=== PATIENT | male | born 1935 | race Caucasian/White ===

== ENCOUNTER 2021-03-18 15:01 | Inpatient (IN) | payer OTHER, MEDICARE ==
[~2021-03-18] VITALS: Ht 175.3 cm; Wt 61.2 kg
--- NOTE | ~2021-03-18 | EMS ---
[address] [address] EMS Patient Care Report Name: SONIA VILLATORO Room #: 452-P [facility] IN M.R.#: [id number] Admission: 03/18/21 Attend Phys: Dayton Case MD Discharge: 03/22/21 Date of : [birth year] Report #: [id number] THIS REPORT FOR: //name// Report Transmitted: 03/23/2021 14:36 EMS Care Summary [facility] MED-ACT Incident [id number] @ 03/18/2021 14:22 Incident Location [address] [place] [address] Patient SONIA VILLATORO Male, 85 Years 1935 Patient Address [address] [place] [address] Patient History Chronic Obstructive Pulmonary Disease (COPD),Dementia,Depression,Dysphagia, Patient Allergies Penicillin allergy,Erythromycin, Patient Medications ASA, Zyprexa, Clonazepam, Chief Complaint altered mental status Disposition Transported No Lights/[place] Dispatch Reason Sick Person Transported To [facility] Narrative Arrived on scene to find the pt sitting upright in a wheelchair. Facility staff in attendance. LFD providing care. Facility staff state the pt has had a steady decline in mentation over over the [address] [address] EMS Patient Care Report Name: SONIA VILLATORO Room #: 452-P DIS IN M.R.#: [id number] Admission: 03/18/21 Attend Phys: Dayton Case MD Discharge: 03/22/21 Date of : [birth year] Report #: [id number] last 15-16 hours. Facility staff state the pt is normally alert to person and place but now, is lethargic and unable to eat, drink or take his medications. Facility staff state that labs were drawn on the pt and the pt did not have a elevated white blood cell count (10.4). Facility staff deny any recent falls or trauma. Facility staff state the pt has had elevated vital signs over the same duration. Exam, vitals, history, EKG, facility staff state the pt normally goes to [facility], I explained that the [facility] is on high volume and it could take longer to get care, they called the pt's DPOA who agreed to have the pt transported to [place]. Pt is lifted by EMS and placed on the cot. The pt is then secured to the cot and taken to the ambulance without incident. 12 lead- no MICHOACANO. En route, no changes in complaint or presentation. Biocom given. Pt is moved via lateral sheet pull to the hospital bed without incident. Initial Vitals @14:50P: 113,BP: 154/84,SpO2: 94, @14:46P: 113,R: 16,Temp: 99.4F,SpO2: 95,NH Suspected: false @PTAP: 120,R: 16,BP: 162/96,Pain: 0/10,GCS: 11,Temp: 99.4F,Glucose: 135,SpO2: 96,Revised Trauma: 11, Assessments @14:34MENTAL:Unresponsive,SKIN:Hot,HEENT:Head/Face: No Abnormalities,Neck/Airway: No Abnormalities,LUNG SOUNDS:ABDOMEN:PELVIS//GI:EXTREMITIES:Left Arm: No Abnormalities,Right Arm: No Abnormalities,Left Leg: No Abnormalities,Right Leg: No Abnormalities,PULSE:NEURO:No Abnormalities, Impression Altered Mental Status Procedures @14:4612-Lead ECG Timeline ASSISTANT FILM EDITOR,BP: 162/96 M,PULSE: 120,RR: 16 R,SPO2: 96 Ox,ETCO2: ,B,PAIN: 0,GCS: 11, 14:21,Call Received 14:21,Psap Call 14:22,Dispatched 14:24,En Route 14:31,On Scene 14:33,At Patient 14:46,12-Lead ECG, 14:46,BP: / M,PULSE: 113,RR: 16 R,SPO2: 95 Ox,ETCO2: ,BG: ,PAIN: ,GCS: , 14:47,Depart Scene [address] [address] EMS Patient Care Report Name: VARUNAJJENNYKYRASONIA STACIE Room #: 452-P [facility] IN M.R.#: [id number] Admission: 03/18/21 Attend Phys: Dayton Case MD Discharge: 03/22/21 Date of : [birth year] Report #: [id number] 14:50,BP: 154/84 M,PULSE: 113,RR: R,SPO2: 94 Ox,ETCO2: ,BG: ,PAIN: ,GCS: , 14:53,At Destination 15:13,Call Closed Disclaimer v1.1 Copyright 2020 [employer] This EMS Care Summary contains data elements from the applicable legal record (which may be displayed differently). It is designed to provide pertinent information for the following purposes: continuity of care, clinical quality, and state data reporting. The complete legal record is available to ED staff and administrators of the receiving hospital in [employer] Patient Tracker. All data is provided "as is."
[2021-03-18 15:05] VITALS: BP 205/108
--- NOTE | 2021-03-18 16:02 | NUR ---
PT ON PUREE DIET W REG LIQUIDS, PT NOT TAKING PO INTAKE OVER THE PAST 24 HRS. COVID TESTING AT FACILITY NEGATIVE AND NON VACCINATED. PER WHITNEY AND DANIEL AT FACILITY. CONFUSED W MORE ACTIVITY AT [facility]. PT WAS ABLE TO AMBULATE WITHOUT ASSISTANCE. ADVANCED DEMENTIA. MODERATE DEMENTIA IN 2010.
[2021-03-18 16:04] LABS: ABSOLUTE NEUTROPHILS 7.6 thou/uL (1.4-8.2); BASOPHILS 0.6 % (0.0-2.0); HEMATOCRIT 38.8 % (42.0-52.0); LYMPHOCYTES 13.2 % (24.0-44.0); MCH 28.5 pg (26.0-34.0); MCHC 33.3 g/dL (28.0-37.0); MCV 85.4 fL (80.0-100.0); MONOCYTES 12.8 % (1.0-8.0); PLATELET COUNT 304 thou/uL (150-400); POLYS 73.4 % (36.0-66.0); RBC 4.55 mil/uL (4.50-6.00); RDW 14.9 % (10.5-14.5); WBC 10.3 thou/uL (4.0-11.0)
[2021-03-18 16:16] LABS: CALCIUM 8.9 mg/dL (8.5-10.1); CREATININE 1.3 mg/dL (0.7-1.3); POTASSIUM 4.5 mmol/L (3.5-5.1)
[2021-03-18 16:19] LABS: ALBUMIN 3.3 g/dL (3.4-5.0); TOTAL BILIRUBIN 1.2 mg/dL (0.2-1.0)
[2021-03-18 16:30] LABS: URINE BLOOD 3+ (Negative); URINE CLARITY CLEAR; URINE COLOR YELLOW; URINE GLUCOSE-RANDOM* NEGATIVE (Negative); URINE KETONES 2+ (Negative); URINE LEUKOCYTES-REFLEX NEGATIVE (Negative); URINE NITRITE-REFLEX NEGATIVE (Negative); URINE PROTEIN (DIPSTICK) 1+ (Negative); URINE SPECIFIC GRAVITY 1.025 (1.005-1.035)
[2021-03-18 16:36] LABS: ICTOTEST (BILI CONFIRMATORY) Negative (Negative); URINE BILIRUBIN NEGATIVE (Negative)
[2021-03-18 16:41] LABS: AMP/METHAMP Negative (Negative); BARBITURATES Negative (Negative); BENZODIAZEPINES Negative (Negative); COCAINE Negative (Negative); METHADONE Negative (Negative); OPIATES Negative (Negative); PCP Negative (Negative)
[2021-03-18 16:46] LABS: BACTERIA-REFLEX 1-9 Few /HPF (None Seen); CASTS None Seen /LPF (None Seen); CRYSTALS None Seen /LPF (None Seen); SQUAMOUS None Seen /LPF (0-3); URINE WBC-REFLEX 0-5 Rare /HPF (0-5)
[2021-03-18 19:53] VITALS: BP 157/109
[2021-03-18 20:58] VITALS: BP 159/81
--- NOTE | 2021-03-19 02:26 | NUR ---
patient is new admit for aspiration pnemonia, uti and ams.patient is non verbal.family at bedside and helped with assessment. no soa/distress/ cough noted this shift.fall precaution in place. patient in bed asleep at this time breathing regular and unlaboured.
[2021-03-19 05:24] LABS: HEMOGLOBIN 11.8 gm/dL (14.0-18.0); MCH 28.1 pg (26.0-34.0); MCHC 32.7 g/dL (28.0-37.0); MCV 85.9 fL (80.0-100.0); RBC 4.19 mil/uL (4.50-6.00); RDW 14.7 % (10.5-14.5); WBC 8.4 thou/uL (4.0-11.0)
[2021-03-19 06:14] LABS: CALCIUM 8.6 mg/dL (8.5-10.1); CREATININE 1.1 mg/dL (0.7-1.3)
--- NOTE | 2021-03-19 07:11 | EKG ---
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 : 1935 Requested By: Jani Agustin Order Number: [id number] MD: Ismael Abdalla Measurements Intervals [place] Rate: 106 P: 65 CO: 179 QRS: -17 QRSD: 74 T: 56 QT: 324 QTc: 431 Interpretive Statements Sinus tachycardia Left atrial enlargement Borderline left axis deviation No previous ECG available for comparison Electronically Signed On 03-19-2021 7:10:50 CDT by Ismael Abdalla [email or web address] <ELECTRONICALLY SIGNED> By: Ismael Abdalla MD, [facility] 03/19/21 0710 D: [id number] 20 Ismael Abdalla MD, FAC /EPI
[2021-03-19 07:30] VITALS: BP 174/91
[2021-03-19] MEDS ORDERED: ASA81BEC PO (08:49)
[2021-03-19] MEDS ORDERED: CLONAZEPAM 0.50.5 M1 PO ×2 (08:50→09:02)
[2021-03-19] MEDS ORDERED: PEPCID40 MG PO (08:51)
[2021-03-19] MEDS ORDERED: REMERON30 MG PO (08:52)
[2021-03-19] MEDS ORDERED: OLANZAPINE5 M1 PO (08:53)
[2021-03-19] MEDS ORDERED: VITAMIN D310 MC2 PO (08:55)
[2021-03-19] MEDS ORDERED: TYLENOL325 MG PO (09:00)
[2021-03-19] MEDS ORDERED: CALCIUM ANTACI200 MG PO (09:01)
[2021-03-19] MEDS ORDERED: OLANZAPINE2.5 MG PO (09:03)
[2021-03-19] MEDS ORDERED: GAS RELIEF125 M1 PO (09:05)
--- NOTE | 2021-03-19 14:23 | NUR ---
PT ADMITTED RELATED TO ASP PNA, UTI, AMS. CM REVIEWED CHART AND SPOKE WITH CARE TEAM. CM MET WITH PT AND DTR KULWANT AT BEDSIDE THIS DAY. PT DIDN'T PARTICIPATE IN ASSESSMENT DTR ANSWERED ALL QUESTIONS. SHE INDICATED THAT PT HAD M[facility]ED INTO [facility] ABOUT 3 WEEKS AGO. SHE INDICATED THAT UP UNTIL 2 OR THREE DAYS AGO PT HAD BEEN AMBULATORY, ABLE TO TOILET HIMSELF AND FEED HIMSELF. DTR INDICATED THAT PT HAD BEEN LIVING IN OWN TRAILET IN [facility] AT THE BEGINING OF THE YEAR AND [place] 3 [place], TO AN [place] [place] WHERE HE HAD BEEN FOR A WHILE, PT HAD BEEN HOSPITALIZED AND SKILLED AT [facility] A FEW TIMES WELL. PT'S SON JANET AND DTR TIERNEY ARE DPOA AND DTR WORKS AT [employer]. THEY ARE INTERESTED IN EVAL FOR POSSIBLE ADMISSION TO [facility]. CM FOLLOWING REGARDING DC PLANNING.
[2021-03-19 15:40] VITALS: BP 168/84
--- NOTE | 2021-03-19 18:40 | NUR ---
ASSUMED PT CARE THIS AM. PT IS DROWSY BUT AROUSABLE AND NONVERBAL. PT HAS IV SITE ON R HAND RUNNING NS @ 75ML/HR. PT HAS DEMENTIA. PT IS ON ROOM AIR. PT VOIDED AND CHANGED PAD THIS AM. PT BP WAS ELEVATED AND INFORMED GIVEN HYDRALAZINE PER DR ORDERED. PT FAMILY WAS AT THE BEDSIDE. DID NOT DO WELL WITH SPEECH EVALUATION THIS AM AND INFORMED PT ON THE BED. PT ON THE LOWEST POSITION, SIDE RAILS UP, CALL LIGHT WITHIN REACH. WILL CONTINUE TO MONITOR PT. FOLLOW POC.
[2021-03-19 19:16] VITALS: BP 159/81
--- NOTE | 2021-03-20 05:38 | NUR ---
Pt. rested quietly at intervals during the night when checked on during frequent rounds. He responds to his name, but will not converse. When giving patient lew care he becomes agitated. Pt. will curse at the staff and attempt to swing out. Bed alarm is on.
[2021-03-20 07:30] VITALS: BP 154/86
[2021-03-20 10:19] LABS: ABSOLUTE NEUTROPHILS 3.1 thou/uL (1.4-8.2); BASOPHILS 0.3 % (0.0-2.0); EOSINOPHILS 0.3 % (0.0-3.0); HEMATOCRIT 33.4 % (42.0-52.0); HEMOGLOBIN 11.1 gm/dL (14.0-18.0); LYMPHOCYTES 27.8 % (24.0-44.0); MCHC 33.2 g/dL (28.0-37.0); MCV 84.3 fL (80.0-100.0); MONOCYTES 15.9 % (1.0-8.0); PLATELET COUNT 284 thou/uL (150-400); POLYS 55.7 % (36.0-66.0); RBC 3.96 mil/uL (4.50-6.00); RDW 14.4 % (10.5-14.5); WBC 5.5 thou/uL (4.0-11.0)
[2021-03-20 10:31] LABS: ALBUMIN 2.6 g/dL (3.4-5.0); CALCIUM 8.1 mg/dL (8.5-10.1); CREATININE 0.9 mg/dL (0.7-1.3); POTASSIUM 3.7 mmol/L (3.5-5.1); TOTAL BILIRUBIN 0.6 mg/dL (0.2-1.0); TOTAL PROTEIN 6.8 g/dL (6.4-8.2)
[2021-03-20 16:26] VITALS: BP 150/88
[2021-03-20 16:34] VITALS: BP 109/54
--- NOTE | 2021-03-20 17:01 | NUR ---
PT IS A&O*1, RESPONSE TO NAME CALLED. PT STARTED TO BE MORE CONFUSED AND AGIATED WITH DYSARTHRIA. PT KEEP TRYING TO LEAVE THE BED AND PULLED OUT IV ONCE. NOTICED RIGHT HADN RED AND SWALLOW WHILE PT HOLDING BED TIGHTLY. RELAX PATIENT'S RIGHT HAND OFF. BED ALARM IS ON, ROOM KEPT CLOSE TO NURSING STATION. NEW IV INSERTED AND WRAPPED BY SECURITY TAPE. DR. KENNEDY CALLED AND NOTIFIED PATIENT'S STATUS. ONE DOSE OLAZAPINE GIVEN. WILL KEEP MONITOR PATIENT'S SAFETY AND VITALS SIGNS.
[2021-03-20 19:56] VITALS: BP 127/65
--- NOTE | 2021-03-21 03:24 | NUR ---
PT CARE ASSUMED WITH PT IN BED SLEEPING AT SHIFT CHANGE.PT IS A/O TO SELF.PT IS IMPULSIVE AND CONFUSED.BLEACH PACKER KASEY NOTIFIED AND ONETIME DOSE OLANZAPINE GIVEN .IV ACCESS ON RT FA WITH D5W0.9NS AT 70CC/HR.PT INCONTINENT TO B/B.PT APPEARED TO BE IN NO ACUTE DISTRESS.PT STRAIGHT CATH FOR URINE SAMPLE.WILL CONTINUE TO MONITOR
[2021-03-21 04:26] LABS: URINE BILIRUBIN NEGATIVE (Negative); URINE BLOOD 2+ (Negative); URINE CLARITY CLEAR; URINE COLOR YELLOW; URINE GLUCOSE-RANDOM* NEGATIVE (Negative); URINE KETONES NEGATIVE (Negative); URINE LEUKOCYTES-REFLEX NEGATIVE (Negative); URINE NITRITE-REFLEX NEGATIVE (Negative); URINE PROTEIN (DIPSTICK) TRACE (Negative); URINE SPECIFIC GRAVITY >= 1.030 (1.005-1.035)
[2021-03-21 04:35] LABS: MUCUS 4-6 Moderate strn/LPF (None Seen); SQUAMOUS None Seen /LPF (0-3)
[2021-03-21 04:36] LABS: BACTERIA-REFLEX 1-9 Few /HPF (None Seen); CASTS None Seen /LPF (None Seen); CRYSTALS None Seen /LPF (None Seen); URINE RBC 3-10 Few /HPF (NONE SEEN); URINE WBC-REFLEX 0-5 Rare /HPF (0-5); WBC CLUMPS Rare (None Seen)
[2021-03-21 07:26] VITALS: BP 177/79
[2021-03-21 16:11] VITALS: BP 147/77
--- NOTE | 2021-03-21 17:11 | NUR ---
PT A&O*1, ROOM AIR, BED ALARM IS ON AND ROOM CLOSE TO NURSING STATION. PT IS ON PUREED DIET WITH NECTAR FLUID. D5 IN 1/2NS SOLUTION GOING THOUGH RIGHT FOREARM IV AT 70 MLS/HR. BLADDER SCAN PATIENT IN THE MORNING SHOWING 475 URINE RESIDUAL VOLUME AND STRAIGHT CATH ONCE 500 ML URINE OUT. PT INCONTINENT FOR URINE AND STOOL. NOTIFIED AND ORDERED BLADDER SCAN TWICE A DAY, STRAIGHT CATH PT IF URINE RESIDUAL GREATER THAN 400 MLS EACH TIME. WILL KEEP MONITOR PATIENT'S SAFETY AND VITAL SIGNS UNTIL SHIFT CHANGE. PT'S YOHANA MONET VISITED PATIENT THIS AFTERNOON AND WILLING TO TALK TO FOR TREATMENT PLAN TOMORROW.
[2021-03-21 20:01] VITALS: BP 151/78
--- NOTE | 2021-03-22 03:26 | NUR ---
PT IS A/O X1 AND IS UP WITH ASSISTANCE. ROOM AIR. DENIES C/O PAIN OR DISCOMFORT. VSS. AFEBRILE. WAS ABLE TO GET UP WITH NURSE AND WALK TO THE BR TO VOID THIS NOC. NO BM THIS SHIFT. CAN BE IMPULSIVE AT TIMES AND IS [place]. PLEASANT AND COOPERATIVE. FALL PRECAUTIONS IN PLACE, CALL LIGHT IS WITHIN REACH.
[2021-03-22 06:26] LABS: ABSOLUTE NEUTROPHILS 2.4 thou/uL (1.4-8.2); BASOPHILS 0.5 % (0.0-2.0); EOSINOPHILS 3.2 % (0.0-3.0); HEMATOCRIT 32.3 % (42.0-52.0); HEMOGLOBIN 10.6 gm/dL (14.0-18.0); MCH 27.7 pg (26.0-34.0); MCHC 32.9 g/dL (28.0-37.0); MCV 84.2 fL (80.0-100.0); MONOCYTES 13.8 % (1.0-8.0); PLATELET COUNT 304 thou/uL (150-400); POLYS 48.5 % (36.0-66.0); RBC 3.83 mil/uL (4.50-6.00); RDW 14.5 % (10.5-14.5)
[2021-03-22 06:51] LABS: CALCIUM 8.3 mg/dL (8.5-10.1); MAGNESIUM 1.9 mg/dL (1.8-2.4); PHOSPHORUS 2.8 mg/dL (2.6-4.7); POTASSIUM 3.7 mmol/L (3.5-5.1)
[2021-03-22 07:18] VITALS: BP 149/6
[2021-03-22] MEDS ORDERED: CARVEDILOL12.5 MG PO (12:47)
[2021-03-22] MEDS ORDERED: FLOMAX0.4 MG PO (12:47)
[2021-03-22] MEDS ORDERED: FINASTERIDE5 MG PO (12:48)
[2021-03-22] MEDS ORDERED: CLINDAMYCIN HC300 MG PO (12:54)
[2021-03-22 15:30] VITALS: BP 160/70
--- NOTE | 2021-03-22 16:50 | NUR ---
CARE TEAM INDICATED THAT PT HAS BEEN ACCEPTED TO [address] [place] [address] THIS DAY. CHART COPY MADE. CM NOTIFIED PT'S SON DPJOY MAX, PT, AND EX WHO WAS AT BEDSIDE THIS AFTERNOON. PT IS TO DC TO RM 456. NO OTHER CM INTERVENTION INDICATED. CASE CLOSED.
--- NOTE | 2021-03-22 17:22 | NUR ---
Patient very sleepy all day. Did not want to consume any meals. DPOA Max called and nurse gave discharge teaching. No pain at this time. Ex at bedside. IV right AC taken out pressure and gauze appiled. D/C to 5th floor room 526.
== END 2021-03-22 17:43 | DRG 871 ==
LOC: ER 15:01 → EROBS 18:50 → 4W 18:50
PROVIDERS: Internal Medicine; Nurse Practitioner; ADMIT Hospitalist; ATTEND Hospitalist
DX: A41.9 Sepsis, unspecified organism (principal); J69.0 Pneumonitis due to inhalation of food and vomit; G93.41 Metabolic encephalopathy; F03.91 Unspecified dementia, unspecified severity, with behavioral disturbance; F32.9 Major depressive disorder, single episode, unspecified; K21.9 Gastro-esophageal reflux disease without esophagitis; F41.9 Anxiety disorder, unspecified; N18.9 Chronic kidney disease, unspecified; R53.81 Other malaise; E55.9 Vitamin D deficiency, unspecified; D64.9 Anemia, unspecified; R33.9 Retention of urine, unspecified; Z20.822 Contact with and (suspected) exposure to COVID-19; Z66 Do not resuscitate; Z88.0 Allergy status to penicillin; Z91.013 Allergy to seafood
CPT/HCPCS: 10040

== ENCOUNTER 2021-03-22 14:50 | Inpatient (IN) | payer OTHER, MEDICARE ==
[~2021-03-22] VITALS: Ht 167.6 cm; Wt 56.8 kg
[~2021-03-22 14:50] MED LIST: ASA81BEC PO; CALCIUM ANTACI200 MG PO; CARVEDILOL12.5 MG PO; CLINDAMYCIN HC300 MG PO; CLONAZEPAM 0.50.5 M1 PO; FINASTERIDE5 MG PO; FLOMAX0.4 MG PO; GAS RELIEF125 M1 PO; OLANZAPINE2.5 MG PO; OLANZAPINE5 M1 PO; PEPCID40 MG PO; REMERON30 MG PO; TYLENOL325 MG PO; VITAMIN D310 MC2 PO
[2021-03-22 18:08] VITALS: BP 177/85
--- NOTE | 2021-03-22 19:06 | NUR ---
1900 NEW ADMIT TRANSFERRED FROM [facility] FOR ALTERED MENTAL STATUS, PATIENT WAS ADMITTED ON 03/21/21 FOR ASPIRATION PNEUMONIA. PATIENT TODAY HAD THOUGHTS OF SUICIDE SO HE WAS TRANSFERRED TO [facility]. PATIENTS ABDOMEN SOFT BOWEL SOUNDS PRESENT. PATIENTS LUNGS SOME LOWER CRACKLES PATIENT IS ON CLINYDIMYCIN FOR PNEUMONIA. PATIENT DENIES SI/HI/AH/VH AT PRESENT BUT STATES HE IS HOPELESS AND DEPRESSED. I CALLED PATIENTS SON JANET VILLATORO FOR PERMISSION TO ADMIT HIS FATHER. I GAVE HIM THE CODE AND EXPLAINED THE UNIT SET UP PATIENT CALM COOPERATIVE. PATIENT ORIENTED TO SELF ONLY PATIENT HAS LEG WEAKNESS AND NEEDS ASSISTANCE WHEN TRANSFERRING. WILL CONTINUE TO MONITOR PATIENT FOR SAFETY AND BEHAVIORS.
[2021-03-22 20:00] VITALS: BP 178/81
[2021-03-22 20:21] VITALS: BP 178/81
--- NOTE | 2021-03-23 02:25 | NUR ---
PATINET CARE WAS RESUMED AT 1900. HE IS ALERT AND CONFUSSED. MAX ASSIT WITH CARE ABLE TO VERBALZE SME NEEDS. HE IS INCONTINET OF BOWEL AND BLADDER. LUNGS ARE CLEAR BS ACTIVE X4 QUADS. HE DENIES PAINS/SI/ AVH/HI. HE IS ON FALL PREACAUTION. YELLOW SOCK AND TOP IS ON AND HE IS ON 12 MINUTES CHECKS. HE TOOK HIS MEDS WHOLE.
[2021-03-23 05:56] LABS: CHOLESTEROL 125 mg/dL (<200); HDL CHOLESTEROL 26 mg/dL (>40); LDL CHOLESTEROL 77 mg/dL (<100); TC:HDL 4.8 Ratio (Not establshd); TRIGLYCERIDE 112 mg/dL (<150); VLDL 22 mg/dL (<40)
[2021-03-23 06:09] LABS: SERUM ASSESSMENT Clear
[2021-03-23 09:32] VITALS: BP 194/99
--- NOTE | 2021-03-23 09:44 | NUR ---
New admit to [facility]. Pt admitted to acute with asp PNE then had AMS and was admitted to [facility]. Noted on puree diet with max assist at meals, at high risk for aspiration. PMH: Dementia, GERD, Anxiety, Depression, CKD, COPD. On ABX and vit D. Intake has been variable with 100% this Am for bkft, nothing yesterday d/t pt reported too sleepy to eat, >50% 03/21, >75% 03/20. ST recommends thickened liquids. Will initiate magic cup BID and place at low nutrition risk at this time.
--- NOTE | 2021-03-23 14:47 | NUR ---
Assumed patient care at 0700, patient alert and confused of time and date. Assessment completed, lungs clear, BS active x4, VSS, ate 100% of breakast and refused lunch, pt is incontinent, pericare done, found patient walking in his room, took medication with pudding, Patient denies Si/Hi/Avh, will continue to monitor patient.
[2021-03-23 20:16] VITALS: BP 177/81
[2021-03-23 20:30] VITALS: BP 177/81
[2021-03-24 00:06] LABS: GLYCOHEMOGLOBIN (HGB A1C) 6.3 % (4.8-5.6)
--- NOTE | 2021-03-24 02:47 | NUR ---
PATINET CARE WAS RESUMED ON THE 1899. HE IS ALERT AND ORIENTED TO HIS NAME. ABLE TO VERBALIZE SOME NEEDS. PT IS Q 12 MINUTES CHECKS. HE TOOK HIS MED WITH WITHOUT ANY ISSUES. PT IS ASSISTED WITH CARE AND HE IS IN BED NOW WITH . HE HAS A YELLOW SHIRT. ALARM IS NO, BED IS LOW AND LOCKED. HE DENIED PAINS. CONTINUED ACARE AND MONITOR.
[2021-03-24 08:58] VITALS: BP 136/62
[2021-03-24 12:57] LABS: HEMATOCRIT 35.7 % (42.0-52.0); HEMOGLOBIN 11.8 gm/dL (14.0-18.0); MCH 28.2 pg (26.0-34.0); MCV 85.4 fL (80.0-100.0); RBC 4.18 mil/uL (4.50-6.00); RDW 14.6 % (10.5-14.5); WBC 6.6 thou/uL (4.0-11.0)
--- NOTE | 2021-03-24 14:11 | NUR ---
PATIENT CARE ASSUMED 0700, PATIENT WAS IN BED BUT CAME OUT FOR BREAKAST, HE WAS ASSISTED WITH MEAL, MEDICATION WAS CRUSHED AND HE DID GOOD TAKING THEM ASSESSMENT COMPLETED, LUNGS CLEAR, BS ACTIVE X4, VSS, PATIENT IS ON FALL RISK PRECAUTION, CHAIR ALARM ON, NO PAIN REPORTED, DENIES HI/SI.WILL CONTINUE TO MONITOR.
--- NOTE | 2021-03-24 16:23 | NUR ---
TANNER was able to speak with Brielle and Mignon at [facility]. TANNER inquired about the facility accepting the Pt back. Brielle informed they would need to complete and inperson assessment with the Pt prior to accepting back. Astridated family present that Pt only had mild issues but once at the facility Pt's needs were greater than stated. Upon initial admission to the facility Pt had an incident of chocking on mashed potatoes. The following day a staff memeber had to perform the heimlich on the Pt due to chocking on a meal. The facility did alter the Pt's diet to accommadate the chocking concerns. Pt is currently in a facility that is more for independent residence however Pt required at least 1 person to assist. Brielle talked about Pt having ECT in the pass and if that was an option. TANNER explained that if Pt's decline is due to a dementia, ECT is not an appropriate option. TANNER asked if they had spoken with the family about their concerns and possibly not accetping the Pt back. Brielle stated they had spoken with the family. Brielle had not further questions at this time. TANNER faxed jw study, PT/OT eval and notes, H&P, progress notes and nursing notes to the facility.
--- NOTE | 2021-03-24 16:43 | H ---
[facility] [place] [address] HISTORY AND PHYSICAL Name: SONIA HURLEY Room #: 526A-A ADM IN M.R.#: [id number] Admission: 03/22/21 Attend Phys: Nikunj Buckley DO Discharge: Date of : [birth year] Report #: [id number] THIS REPORT FOR: cc: Rose Olivarez Stephanie M. DO Kerstein,Nikunj Danielle DO ~ DATE OF SERVICE: 03/23/2021 INPATIENT PSYCHIATRIC EVALUATION PRIMARY ATTENDING: Nikunj Buckley DO TRACK SURFACING MACHINE OPERATOR: Dayton Case M.D. REASON FOR ADMISSION: Dementia with behavioral disturbance picture. CHIEF COMPLAINT: Unspecified. Of note, the patient is uncooperative and a very poor historian. Voicemail has been left for his daughter and DPOA, Marine Hurley, at [phone] and I did get call back, so I can add information throughout. Of note, the patient was [facility]. HISTORY OF PRESENT ILLNESS: An 85-year-old male initially admitted medically on 03/18 with multiple histories including dementia, depression, anxiety, COPD, chronic kidney disease. He was [facility] from [facility] due to "altered mental status." He was recently moved in a memory care facility, as he is unable to function at his assisted living. He has been at memory care facility for about 2 weeks. He has been having difficulty with agitation and not sleeping at night and was started on trazodone in addition to his clonazepam and olanzapine. He was noted to be more altered and was not eating or drinking. He had a low-grade fever at intermediate. Workup in the ED showed possible pneumonia on chest x-ray. He was unable to give information. ALLERGIES: TO PENICILLIN AND SHELLFISH. CAT scan of the head showed no acute intracranial abnormalities, age-related findings including symmetric cerebral and cerebellar volume loss, atherosclerosis and chronic central white matter microvascular ischemia, read by Dr. Chris. Chest x-ray showed mild patchy opacity in the right medial lower lobe, chronicity indeterminate. This could possibly be focal pneumonitis is also considered. Lungs are otherwise clear. Unknown about tobacco, alcohol or recreational drug use history. REVIEW OF SYSTEMS: Unable to be obtained at the time of medical admission, similar to psychiatric admission. His physical exam was grossly normal, done by Dr. Case. Medical problems noted were pneumonia, GERD, history of anxiety and [address] [address] HISTORY AND PHYSICAL Name: SONIA HURLEY Room #: 526A-A [facility] IN ..#: [id number] Admission: 03/22/21 Attend Phys: Nikunj Buckley DO Discharge: Date of : [birth year] Report #: [id number] depression and he was diagnosed with encephalopathy. ADDITIONAL INFORMATION: Laboratories over the ensuing days. Most recent CBC on 03/22, H and H 10.6 and 32.3, white count 5.0, platelet count 304. Chemistry: Sodium 140, potassium 3.7, chloride 104, bicarbonate 25, anion gap 11, BUN 12, creatinine 1.0, estimated GFR 71, glucose 127. Lactic acid on 03/18 was 1.9. Labs on 03/22, calcium 8.3, phosphorus 2.8, magnesium 1.9, total bilirubin 0.6, AST 22, ALT 22, alkaline phosphatase 85, total protein 6.8, albumin 2.6, triglycerides 112, cholesterol 125, LDL 77, HDL 26. Procalcitonin 0.11 on 03/18, which was normal, normal is less than 0.5 ng/mL. Urinalysis from 03/21 showed trace protein, 2+ blood, 4.0 urobilinogen, 3-10 rbc's, rare white blood cell clumps, Urine culture was not triggered. Blood culture from 03/18 shows no growth till 03/19 or 03/20. Other information of note, it looks like his first admission at [place] was on 03/18, so no remote records available. VITAL SIGNS: Today, temperature 36.7, pulse 70, respirations 18, BP 194/99, O2 sat 93%. The patient was in a Jordyn chair, curled up on his right side. He was uncooperative, was sitting up to eat lunch today when I saw him. MENTAL STATUS EXAMINATION: Well-developed, ill, age appearing male. Attention and concentration impaired. Speech, one to two word answers. Not cooperative with further questioning. Thought process linear. Very limited thought content, poverty of thought. Mood and affect is irritable, frustrated, congruent, restricted. Unable to assess well for suicidality, homicidality, auditory, visual, or tactile hallucination, but the patient was not injurious to self or appeared to be responding to internal stimuli. Memory noted to be impaired, not formally tested. Insight and judgment impaired. Fund of knowledge well below average. FORMULATION: An 85-year-old male sent out from [facility] facility due to altered mental status, concern pneumonia, now referred for psychiatric admission. DIAGNOSES: At this time, major neurocognitive disorder, unspecified etiology with behavioral disturbance. Current comorbidities include depression, anxiety, aspiration pneumonia, possibly acute kidney injury, vitamin D deficiency. I did get a little more background information from a solar site assessment specialist consult. The patient was hospitalized in November of this year for aspiration pneumonia and since hospitalization has increased depression. He also has issues with anxiety, in which he has taken Klonopin for years. Daughter reports the patient was hospitalized one month ago for JESENIA at [facility] [address] [place] [address] HISTORY AND PHYSICAL Name: SONIA HURLEY Room #: 526A-A [facility] IN [facility]#: [id number] Admission: 03/22/21 Attend Phys: Nikunj Buckley, Discharge: Date of : [birth year] Report #: [id number] secondary to poor intake at facility. Three weeks ago, the patient was walking, feeding himself and assisting with ADLs. Today, the patient is largely bedridden. Downstairs, he awakened to voice. She is concerned that psychiatric meds are the cause of his oversedation. PLAN: The patient is admitted via DPOA. He is incapacitated. DPOA is enacted. Evaluate, stabilize, obtain collateral. CURRENT MEDICATIONS: Include famotidine 40 mg a day, finasteride 5 mg p.o. daily, vitamin D3 1000 International Units daily, aspirin 81 mg daily, carvedilol 12.5 mg p.o. b.i.d., tamsulosin 0.4 mg p.o. daily, olanzapine 5 mg p.o. at bedtime, clindamycin 300 mg p.o. t.i.d. , Zofran, and other house PRNs. He did receive a p.o. olanzapine on 03/23 at just after midnight. STRENGTHS: He is insured. WEAKNESSES: Advanced age and advanced dementia and multiple morbidities. ESTIMATED LENGTH OF STAY: 10-14 days, could be longer if comfort care and facility will not take him back. <ELECTRONICALLY SIGNED> By: Nikunj Buckley DO 03/24/21 1643 [id number] Nikunj Buckley DO /nt
[2021-03-24 19:36] VITALS: BP 133/73
[2021-03-24 20:00] VITALS: BP 133/73
--- NOTE | 2021-03-25 01:22 | NUR ---
PATINET CARE WAS RESUMED AT 1900. HE IS ALERT ANG VERY CONFUSSED. UNABLE TO MAINTAIN A GOOD COMMUNICATION SKILL. HAS DENIES PAINS/SI/AVH AND HI. HE IS INCONTINENT OF BOWEL AND BLADEER. DUE MEDS WERE GIVEN AND HE TOOK THEM WHOLE IN APPLE SAUCE.HE IS ON ABT FOR PNEMONIA. NO CONCERN NOTED AT THIS TIME. LUNGS ARE CLEAR BS ACTIVE X4 QUAD. ALARM ON THE CHAIR AND Q 12MINUTES CHECK ONGOING. CONTINUE CARE ASSIST
[2021-03-25 08:51] VITALS: BP 132/59
--- NOTE | 2021-03-25 10:00 | NUR ---
ASSUMED CARE OF PATIENT 0700, AWAKE AND ALERT TO DONAL, CONFUSSED, ALTRASOUND DONE FOR THE CELLULITIS ON RIGHT HAND, PATIENT IS INCONTINENT, NEED HELP IN FEEDING, LUNGS CLEAR, BS ACTIVE X4, DENIES SI/HI/AVH, NO PAIN REPORTED. WILL CONTINUE TO MONITOR PATIENT
--- NOTE | 2021-03-25 12:03 | NUR ---
TANNER was able to speak with the Pt's daughter/DPOA, Marine [phone]. Marine was able to give some background on the Pt. Pt has had a prior psychiatric stay in the late due to depression. Pt was seen by Dr. Lewis in November 2020 and dx with a mild nuerocognitive disorder. Pt did not have a regular psychiatrist he was seeing prior to this hospitalization. Pt lived on his own until November of this year when he had a decline. Marine believes the decline was due to medications. Marine would like Pt taken off all psych meds and baselined. Marine requested to speak with Dr. Noe concerning the type of dementia the Pt has, the type of evaluation used, and the stage of dementia the Pt is in. Marine also requested Pt get nueropsy testing and a head CT. TANNER provided some education on dementia and nueropsy testing. TANNER informed her request will be passed on to Dr. Noe. Marine had no other questions or concerns. TANNER will continue to follow
[2021-03-25 19:39] VITALS: BP 151/68
--- NOTE | 2021-03-26 13:22 | NUR ---
UP IN HALLWAY WALKING ON OWNDESPITE MULTIPLE REQUESTS TO NOT DO SO-GAIT VERY UNSTEADY-ANXIOUS DISTRAUGHT FACIAL EXPRESSION-ASKING MULTIPLE TIMES IF HE IS OR IF THIS IS HIS OFFICE-DOES NOT RESPOND TO SUPPORT,REASSURANCE-AMBULATED AND TOILETED BUT CONTINUES TO BE RESTLESS,PLACED IN BED BRIEFLY BUT IMMEDIATLY GOT UP TRIGGERING BED ALARM. PLACED IN GERICHAIR BUT ATTEMPTIG TO GET UP FROM THERE REPEATLY-STAFF SITTING AT SIDE FOR CONSTANT OBSERVATION-FALL PRECAUTIONS IN PLACE-CHAIR ALARM ACTIVATED.
--- NOTE | 2021-03-26 18:32 | NUR ---
SW recieved a call from the Pt's daughter, Marine. Marine was tearful during the phone call and stated she was confused about the treatment plan for the Pt. Marine went on to state that she was told the Pt recieved and IM today however later was informed that was not the correct. Marine also stated she was "confused" about the Pt being on a psychiatric unit. SW confirmed the Pt did not recieve and IM. SW also confirmed that the Pt did not have any PRN's or scheduled pyschiatric meds at this time. TANNER educated Marine on dementia, SLUMS, and nueropsy testing. SW provided education on the [facility] and the population served on the unit. SW assured Marine that HU team is knowledgable with working with dementia and other mental illness. SW provided emotional support for Marine. SW gave and update on the Pt. Marine had no other questions or concerns. TANNER will continue to follow.
[2021-03-26 20:58] VITALS: BP 144/63
[2021-03-27 09:37] VITALS: BP 158/74
[2021-03-27 09:42] VITALS: BP 158/74
--- NOTE | 2021-03-27 10:43 | NUR ---
1045 RESUMMED CARE FROM OVERNIGHT SHIFT THIS AM, PATIENT IN ROOM LYING QUIET. WE GOT PATIENT UP TOOK HIM INTO DAY ROOM FOR BREAKFAST PATIENT WAS FEED SOME OF HIS BREAKFAST. PATIENT TOOK MEDICATION CRUSHED IN YOGART, PATIENT UNABLE TO TELL ME ABOUT SI/HI/AH/VH AT PRESENT DUE TO COGNITIVE DO. PATIENTS ANDOMEN SOFT BOWEL SOUNDS PRESENT. PATIENTS LUNGS CLEAR PATIENT'S AFFECT FLAT NOT INTERACTING WITH ANYONE. WILL CONTINUE TO MONITOR PATIENT FOR SAFETY AND BEHAVIORS.
[2021-03-27 20:33] VITALS: BP 149/71
[2021-03-27 21:32] VITALS: BP 149/71
--- NOTE | 2021-03-28 03:00 | NUR ---
03/27/21 - Pt is alert to self, sitting in g-chair, he is fidgety and he states I am cold, blanket provided. Pt likes ice cream and said "boy that's good" Several attempts throughout the night to but patient in bed, he would rest for a little bit then would get out of bed requires frequent monitoring.
[2021-03-28 08:00] VITALS: BP 146/80
--- NOTE | 2021-03-28 16:11 | NUR ---
SW faxed updates to [facility]. SW team will remain available while on this unit.
--- NOTE | 2021-03-28 17:09 | NUR ---
PT'S DAUGHTER AND DPOA TIERNEY STATES IT IS OKAY TO GIVE PT INFORMATION IN PERSON AND OVER THE PHONE TO DENI ROSALES AND KULWANT BYRNES. DENI'S PHONE NUMBER IS [phone].
--- NOTE | 2021-03-28 17:18 | NUR ---
PT'S DAUGTHER WAS HERE AT 1600 VISITING HOURS. PT'S DAUGHTER STATES SHE WANTS PT UP AND WALKING. PT'S DAUGHTER STATES SHE IS CONCERNED THAT PT HAS LOST WT . PT'S DAUGHTER STATES PT DOES NOT EAT BREAKFAST BUT WILL EAT LUNCH AND MANY SNACKS THROUGH OUT DAY AND DINNER. DAUGHTER STATES PT LIKES ANYTHING VANILLA, INCLUDING ENSURE. PT'S DAUGHTER STATES SHE WANTS DR PÉREZ TO BE MADE AWARE THAT SHE IS OKAY WITH PT TAKING OLANZAPINE 2.5MG BUT NO HIGHER OF A DOSE. SHE STATES PT IS VERY SENSITIVE TO ALL MEDS AND DOES WELL WITH THE OLAZAPINE 2.5 MG MELT AWAYS.
--- NOTE | 2021-03-28 17:34 | NUR ---
PT'S DAUGHTER REQUESTED PT BE RESTARTED ON OLAZAPINE 2.5 MG PRN. MICHAEL WELLS NP CALLED AND ORDER GIVEN TO RESTART OLAAPINE 2.5MG PRN PO Q6 FOR AGITATION. MARIELENA KYM INFORMED THAT PT'S DAUGHTER IS CONCERNED WITH PT WT LOSS AND IS REQUESTING A VIDEO SWALLOW STUDY. RN CALLED AND LEFT MESSAGE WITH PT'S DAUGHTER THAT BIT GRINDER WAS CALLED AND NOTIFIED ABOUT ABOVE CONCERNS.
[2021-03-28 19:30] VITALS: BP 139/67
[2021-03-28 20:18] VITALS: BP 139/67
--- NOTE | 2021-03-29 00:13 | NUR ---
Assumed care on 03/28/21 @ 1900, ambulated with staff from room to day room then back to bedroom. HRRR, Lungs CTA although only shallow breaths (D/T [place] [employer] [employer] and not cooperative with deep breaths during assessment) ABD N x 4Q. Compliant with medication administration taking meds crushed in applesauce and vanilla ice cream. PRN olanzapine 2.5mg @ 20:30. Bed in low position, bed alarm set will continue to monitor as per unit protocol for safety and comfort.
[2021-03-29 08:45] VITALS: BP 141/62
--- NOTE | 2021-03-29 11:48 | NUR ---
RT Progress Note- Gerardo has either declined each recreation therapy group or has been sleeping during programming since his admission. He has allowed for a few 1;1 visits and has been able to share his feelings of depression or fear, though he is unable to elaborate on this and identify what would help him. WARP PLACER will continue to encourage patient's presence in the milieu and will provide him with 1;1 interaction as available.
--- NOTE | 2021-03-29 17:35 | NUR ---
[facility] completed and in- person assessment with the Pt on the unit. While here Brielle informed TANNER the facility would not be able to accept the Pt back due to Pt's decline. Pt is needing assistance with feeding and walking. Brielle stated they do not have the staff and no opening in thier other facilites. Brielle also informed they are having ameeting with the family at 1300 today concerning the matter. TANNER will continue to follow
--- NOTE | 2021-03-29 17:40 | NUR ---
JOSEE recieved a call from Marine concerning a meeting with [facility]. Marine requested a referral be sent to [facility] of . Marine also requested a video swollow. Marine went on to state the Pt has lost 10lbs and should have snacks available to him. JOSEE educated on the meal and snack times, informing that the Pt does get snacks at the designated time. JOSEE informed the information will be given to Dr. Noe and a possible dietary consult could be ordered if needed. Marine was okay with this information and had no further questions or comments. Josee did fax referral to [facility]. Pt has a scheduled assessment with Margo SOUZA 03/30/21 @ 0900. JOSEE will continue to follow.
--- NOTE | 2021-03-29 18:28 | NUR ---
Assumed pt care at 0700. pt was in his room sleeping. Alert and oriented to person. Assessments completed, vss. Denies si/hi, denies pain at this time. active bowel sound. Took meds crushed, no difficulty noted. AMbulates with a w/c. pt was irritatable with care. pt refused to get up for breakfast. Pt got up for lunch. PT GET IRRITABLE AND COMBATIVE WITH CARE. PT WAS REDIRECTED. No PRNs given. Pt daughter called to get update. pt visited during 4-5pm visisting hours. Pt refuse to get up for dinner. 1700 meds was administered with vanilla ice cream. At this time, pt is in his room resting. Will continue to monitor.
[2021-03-29 19:42] VITALS: BP 118/58
[2021-03-29 19:51] VITALS: BP 118/58
--- NOTE | 2021-03-29 23:37 | NUR ---
Assumed care on 03/29/21 @ 1900, seated in darwin chair in the day room. Asked for ice cream. Tolerated assessment, VSS, compliant with medication administration, taking meds crushed in pudding. Provided Tylenol 650 for general pain. Ambulated with x1 assist from day room to bedroom @ HS. Bed in low position, bed alarm set, will continue to monitor as per unit protocol.
[2021-03-30 09:22] VITALS: BP 151/66
--- NOTE | 2021-03-30 09:38 | NUR ---
Nutrition followup: pt continues on SBU with dementia/behaviors. ST following and continues to requires pureed with nectar thick liquids. Unable to complete a videoswallow due to behaviors. PO intake highly variable from refusal to 90%. Average intake 45% of meals. Receives ensure pudding/magic cup supplements. % intake of supplements is lacking. Discussed with nsg. pt likes vanilla things (magic cup) and did consume his ensure pudding this am with meds. Per dtr, does not eat breakfast but eats lunch/dinner and many snacks throughout day which are available to pt on unit. Noted 10# weight loss report. Not aware of time frame of loss however suggest obtain weights twice/week. If further loss, consider appetite stimulant. Continue present interventions.
--- NOTE | 2021-03-30 12:19 | NUR ---
Alert and orientated to name only. Denies SI/HI. Kept yelling that he wanted to stay in bed. Lifted with two staff into recliner. As soon as staff stepped away from chair he got up and crawled back into bed. Placed back in chair and brought back to dining room. Repeatedly asking to go back to bed before he fell asleep in recliner. Ate some of breakfast independently, lost interest after several bites. Ate ensure pudding without difficulty when fed to him. Breath sounds clear. Reg HR auscultated. Color pink with brisk capillary refill and palpable peripheral pulses. No edema noted. Brief dry. Active bowel sounds over soft, flat abdomen. Sat all morning in chair without s/o distress.
--- NOTE | 2021-03-30 16:56 | NUR ---
0900 LIBBY from [facility] completed an assessment with the Pt. [facility] requested the video swollow be completed prior to accepting the Pt. Sw will continue to follow
[2021-03-30 19:52] VITALS: BP 128/56
--- NOTE | 2021-03-31 05:46 | NUR ---
03-30-21 CARE TRANSFERRED 1899 OBSERVED PT SITTING IN RECLINER IN DAY ROOM RESTING WITH EYES CLOSED. LATER PT AAOX1, VSS, RR EVEN AND NONLABORED ON RA, OBSERVED NO S/S OF PAIN AND OBSERVED NO BEHAVIORS OF SI/HI. PT ATE 100% OF HS SNACK AND HAD NO DIFFICULTY TAKING MEDICATION CRUSHED IN PUDDING. LATER PT BECAME RESTLESS AND OPERATORS SCHOOL MANAGER WALKED WITH PT TO ROOM, OPERATORS SCHOOL MANAGER REPORTED PT HAD HEAVY URINE SOAKED BRIEF. LATER PT BECAME RESTLESS WITH AGITATION AND PRN MEDICATION MEDICTION ADMIN, LATER NOTED RESTING WITH EYES CLOSED.
[2021-03-31 08:29] VITALS: BP 149/77
--- NOTE | 2021-03-31 13:44 | NUR ---
TANNER sent a referral to [facility] per the family's request
--- NOTE | 2021-03-31 18:00 | NUR ---
HAS BEEN VISIBLE IN DAYROOM SITTING IN GERICHAIR-CURLED UP IN POSITION WITH EYES CLOSED SOME OF THE TIME WHEN AWAKE IS RESTLESS TURNINGSIDE TO SIDE IN GERICHAIR-SLID SELF TO END OF CHAIR AND WAS ATEMPTING TO STAND ON OWN TRIGGERING CHAIR ALARM. SPEECH IS SFLCHESSUE-[facility]-KFEE DIRECTED DIFFICULT TO UNDERSTAND-DOES MAKE REFERENCE TO PALLBEARERS SEVERAL TIMES THIS PM-ASKING IF THEY ARE HERE YET-WHEN ASKED WHO WAS HAVING A STATES ME. INCONTINENT OF URINE X3 TODAY-DOES STRIKE OUT AT STAFF WITH INCONTINENT CARE OTHERWISE NO PHYSICAL AGGRESSION.EATING WELL.SWALLOW STUDY COMPLETED AFTER LUNCH AND WAS ADVANCED TO [facility] SOFT DIET-CONTINUES HIGH FALLS RISK
--- NOTE | 2021-03-31 19:27 | NUR ---
ISRA (JANET VILLATORO) [phone] CALLED, AND NOTIFIED OF THE SUSPENSION OF MORNING VISITATION AFTER TOMORROW, RELATED TO COVID SURGE IN THE COMMUNITY PER HOSPITAL PROTOCOL.
[2021-03-31 20:02] VITALS: BP 141/71
--- NOTE | 2021-04-01 05:45 | NUR ---
03-31-21 CARE TRANSFERRED 0 OBSERVED PT SITTING IN DAY ROOM, RESTING WITH EYES CLOSED. LATER PT AAOX1, VSS, RR EVEN AND NONLABORED ON RA, LUNGS CLEAR, DIMINISHED, HT RR, ABD SOFT AND ACTIVE. OBSERVED NO S/S OF PAIN AND NO SI/HI BEHAVIORS OBSERVED. PT ATE FULL HS SNACK. LATER PT HAD NO DIFFICUTLEIS TAKING MEDICATIN CRUSHED IN PUDDING. LATER PT AGITATED DURING CARES, PT BED ADJUSTED FOR COMFORT, LOWEST POSITION, LOCKED WITH ALARM ACTIVE. PT WILL CONTINUE TO BE MONITOR PER [facility] PROTOCOL.
[2021-04-01 10:07] VITALS: BP 133/70
--- NOTE | 2021-04-01 13:06 | NUR ---
Drowsy, sleeps in recliner when not disturbed. Orientated to name only. Nods "no" to questions about SI/HI. Able to stand with alot of encouragement but wants to lay back in recliner and sleep. Ignores tray but eats eagerly when fed. Ate 100% of lunch and supplement when fed. Breath sounds clear. Reg HR auscultated. Color pink with brisk capillary refill and palpable peripheral pulses. Incontinent of large amt yellow urine per brief. Active bowel sounds over soft, flat abdomen. Currently sleeping in day room without s/o distress.
[2021-04-01 16:45] VITALS: BP 145/64
--- NOTE | 2021-04-01 17:52 | NUR ---
Josee faxed the results of the video jw to [facility]. Josee Spoke with Natacha who informed they were having a meeting with the family today at 1500 about some concerns they have. Natacha stated she would contact JOSEE after the meeting. As of this note JOSEE has not received a call from [facility]
[2021-04-01 18:03] LABS: HEMOGLOBIN 11.8 gm/dL (14.0-18.0); MCH 27.1 pg (26.0-34.0); MCHC 31.8 g/dL (28.0-37.0); MCV 85.3 fL (80.0-100.0); RBC 4.34 mil/uL (4.50-6.00); RDW 14.6 % (10.5-14.5); WBC 17.8 thou/uL (4.0-11.0)
[2021-04-01 18:12] LABS: CALCIUM 9.5 mg/dL (8.5-10.1); CREATININE 1.5 mg/dL (0.7-1.3); MAGNESIUM 2.1 mg/dL (1.8-2.4); POTASSIUM 4.5 mmol/L (3.5-5.1)
[2021-04-01 18:47] LABS: FOLIC ACID 15.5 ng/mL (8.6-58.9)
[2021-04-01 19:10] LABS: URINE BILIRUBIN NEGATIVE (Negative); URINE BLOOD TRACE (Negative); URINE CLARITY CLEAR; URINE COLOR YELLOW; URINE GLUCOSE-RANDOM* NEGATIVE (Negative); URINE KETONES NEGATIVE (Negative); URINE PROTEIN (DIPSTICK) TRACE (Negative); URINE SPECIFIC GRAVITY 1.015 (1.005-1.035); URINE UROBILINOGEN 0.2 E.U./dl (0.2-1.0)
[2021-04-01 19:11] LABS: URINE LEUKOCYTES-REFLEX 2+ (Negative); URINE NITRITE-REFLEX POSITIVE (Negative)
[2021-04-01 19:34] VITALS: BP 117/48
[2021-04-01 19:38] LABS: SQUAMOUS None Seen /LPF (0-3)
[2021-04-01 19:39] LABS: BACTERIA-REFLEX >30 Many /HPF (None Seen); CASTS None Seen /LPF (None Seen); CRYSTALS None Seen /LPF (None Seen); URINE RBC 1-2 Rare /HPF (NONE SEEN); URINE WBC-REFLEX >25 Many /HPF (0-5)
[2021-04-02 05:00] LABS: HEMATOCRIT 34.6 % (42.0-52.0); HEMOGLOBIN 11.3 gm/dL (14.0-18.0); MCH 27.8 pg (26.0-34.0); MCHC 32.7 g/dL (28.0-37.0); MCV 85.1 fL (80.0-100.0); RBC 4.06 mil/uL (4.50-6.00); RDW 15.1 % (10.5-14.5); WBC 15.5 thou/uL (4.0-11.0)
--- NOTE | 2021-04-02 05:02 | NUR ---
04-02-21 CARE TRANSFERRED 0. LATER PT AAOX1, VSS BUT HAS ELEVATED TEMP, PER SHIFT REPORT PT WAS NEG COVID, PT LUNGS CLEAR, HT RR, ABD SOFT AND ACTIVE, PT SKIN HOT AND DRY. OBSERVED NO S/S OF PAIN, OBSERVED NO SI/HI BEHAVIORS. LATER PT HAD LARGE BM, BROWN AND SOFT, CLEANED WITH WIPES AND NOTED REDNESS IN PERIAREA, BARRIER CREAM APPLIED. PT WAS REPOSITION FOR COMFORT WITH BED IN LOWEST POSITON, LOCKED AND ALARM ON. PT WILL CONTINUE TO BE MONITOR PER [facility] PROTOCOL.
[2021-04-02 05:23] LABS: CALCIUM 9.2 mg/dL (8.5-10.1); CREATININE 1.4 mg/dL (0.7-1.3); MAGNESIUM 2.1 mg/dL (1.8-2.4)
[2021-04-02 10:23] VITALS: BP 118/64
--- NOTE | 2021-04-02 13:22 | NUR ---
Assumed patient care by 0700, in bed and refuse to come out for breakfast, assesment was completed, lungs clear, bs active, appears weak and unpleasant. took three staff to get him up by noon, pericare was done, patient refused to eat lunch but took his medication, wasn't able to verbalized needs, will continue to monitor patients
[2021-04-02] MEDS ORDERED: CLEOCIN HCL150 MG PO (15:02)
[2021-04-02] MEDS ORDERED: LEVOFLOXACIN500 MG PO (15:02)
[2021-04-02] MEDS ORDERED: OLANZAPINE ODT5 MG PO (15:03)
[2021-04-02] MEDS ORDERED: AMLODIPINE BESY10 MG PO (15:03)
--- NOTE | 2021-04-02 16:01 | NUR ---
@8272 Brittany Evans from [facility], completed a assessment via Zoom with the Pt. Pt was sleep during the assessment. When SW tried to wake Pt up, Pt continued to sleep. SW was able to finish the assessment and answer questions. @3375 SW contact Chandrika, , concerning a decision to accept the Pt. Brittany stated she did not believe they could meet the Pts need in [facility] memory care however wanted to talk it over with the director of AL before giving a final decision. Brittany also stated they did not feel they would be able to meet the Pt's needs on the LTC unit. Brittany stated she would call SW back after speaking with her director.
--- NOTE | 2021-04-02 16:18 | NUR ---
TANNER contacted [facility] of . TANNER spoke with Brianne Cason concerning acceptance of the Pt. Brianne stated they had a scheduled meeting with the family on 04/01/2021 @1500. However the family did not show. The Pts' daughter, Marine, later called the facility to reschedule the meeting for Thursday 04/05. Brianne stated they are waiting for the meeting to make a decision on the matter. TANNER will continue to follow.
[2021-04-02 19:11] VITALS: BP 117/52
--- NOTE | 2021-04-02 21:31 | NUR ---
PATIENT CARE ASSUMED AT 1900, ATTEMPTED HS MEDS CRUSHED IN ICE CREAM, PATIENT WOULD NOT AWAKEN TO TAKE THEM AFTER SEVERAL PROMPTS. ORDERS RECIEVED TO MOVE PATIENT TO ROOM 463 ON . REPORT CALLED TO DANIEL AND PATIENT TRANSPORTED TO [facility]. ISRA MONET CALLED AND PROVIDED NUMBER TO [facility].
== END 2021-04-02 21:03 | disposition short-term general hospital (02) | DRG 884 ==
LOC: SBH
PROVIDERS: Internal Medicine; Psychiatry & Neurology Psychiatry; ADMIT Psychiatry & Neurology Psychiatry; ATTEND Psychiatry & Neurology Psychiatry
DX: F03.91 Unspecified dementia, unspecified severity, with behavioral disturbance (principal); N18.9 Chronic kidney disease, unspecified; J69.0 Pneumonitis due to inhalation of food and vomit; Z20.822 Contact with and (suspected) exposure to COVID-19; F32.9 Major depressive disorder, single episode, unspecified; F41.9 Anxiety disorder, unspecified; J44.9 Chronic obstructive pulmonary disease, unspecified; R90.82 White matter disease, unspecified; I12.9 Hypertensive chronic kidney disease with stage 1 through stage 4 chronic kidney disease, or unspecified chronic kidney disease; E55.9 Vitamin D deficiency, unspecified; K21.9 Gastro-esophageal reflux disease without esophagitis; I80.8 Phlebitis and thrombophlebitis of other sites; R50.9 Fever, unspecified; Z88.0 Allergy status to penicillin; Z91.013 Allergy to seafood
CPT/HCPCS: 10880

== ENCOUNTER 2021-04-02 18:50 | Inpatient (IN) | payer OTHER, MEDICARE ==
[~2021-04-02] VITALS: Ht 175.3 cm; Wt 56.7 kg
[~2021-04-02 18:50] MED LIST changes: +AMLODIPINE BESY10 MG PO; +CLEOCIN HCL150 MG PO; +LEVOFLOXACIN500 MG PO; +OLANZAPINE ODT5 MG PO
[2021-04-02 20:25] VITALS: BP 121/58
--- NOTE | 2021-04-03 02:34 | NUR ---
NEW ADMISSION FROM [facility] FOR SEPSIS.PATIENT AOX1, PATIENT WAS NOT ABLE TO PARTICIPATE WITH ASSESSMENT. CONSENTS NOT SIGNED, FAMILY NOTIFIED OF PATIENT TRANSFER. FALL PRECAUTION IN PLACE. NEW IV ON LEFT HAND 22 GAUGE. PATIENT WAS NOT ABLE TO TAKE HS MEDS. PATIENT REFUSED FLUIDS.FALL PRECAUTION IN PLACE. PATIENT IN BED ASLEEP AT THIS TIME BREATHING REGULAR AND UNLABOURED.
[2021-04-03 07:15] VITALS: BP 123/64
[2021-04-03 09:12] LABS: HEMOGLOBIN 10.9 gm/dL (14.0-18.0); MCH 28.1 pg (26.0-34.0); MCHC 33.2 g/dL (28.0-37.0); MCV 84.5 fL (80.0-100.0); RBC 3.9 mil/uL (4.50-6.00); RDW 15.2 % (10.5-14.5); WBC 8.7 thou/uL (4.0-11.0)
[2021-04-03 09:22] LABS: CALCIUM 8.8 mg/dL (8.5-10.1); CREATININE 1.3 mg/dL (0.7-1.3); POTASSIUM 3.8 mmol/L (3.5-5.1)
--- NOTE | 2021-04-03 09:53 | NUR ---
PT SLEEPY THIS AM. PT ASKED THIS MANAGER TRANSMISSION WHAT I WAS DOING, TOLD PT I WAS HANGING HIS ABX. PT GETTING IV FLUIDS AT THIS TIME. PT IN POSITION. PT DIDN'T SHOW ANY SIGNS OF AGITATION. PT REFUSED MEDS AND TO EAT BREAKFAST.
--- NOTE | 2021-04-03 15:12 | NUR ---
PATIENT FOUND ON ROOM AIR SAT 95%. PATIENT REFUSED TO TAKE A MASK OR MOUTH PIECE TREATMENT RT HAS BEEN GIVEN PATIENT A BLOWBY UNTIL TOLERATED, PATIENT BECOMES PHYSICALLY AND VERBALLY TOWARD RT.
--- NOTE | 2021-04-03 15:57 | NUR ---
CALLED TIERNEY DHALIWAL AND GAVE UPDATE TO PT. OBTAINED PHONE CONSENT FOR TREATMENT. SHE STATED HE LIKES SWEET TEA, SWEETS SUCH ICE CREAM, APPLE JUICE, YOGART, AND VANILLA ENSURE.
--- NOTE | 2021-04-03 16:55 | NUR ---
PT ABLE TO TURN SIDE TO SIDE IN BED. PT INCON. OF URINE AND SMEAR OF BM. PT ASKING WHAT WE WAS DOING. PT REFUSED A BATH. PT RECIEVED A PARTIAL BATH DUE TO URINE INCON. BARRIER CREAM WAS APPLIED TO SCROTAL AREA. BED ALARM ACTIVATED. PT HAS REFUSED TO DRINK AND EAT SO FAR TODAY.
[2021-04-03 18:36] VITALS: BP 118/53
[2021-04-03 22:00] VITALS: BP 120/60
--- NOTE | 2021-04-03 22:47 | NUR ---
PT ALERT AND ORIENTED X1. FORGETFUL. REPEAS SAME QUESTIONS . VSS T 98.9. UNLABORED ON RA. NO C/O PAIN. C/O ANXIETY. OLANZAPINE PO GIVEN. NO TELE. HRR. INC OF URINE IN LG AMTS. PT TRANSFERRED TO 436 MS BED. BED DOWN. CALL LIGHT IN REACH. BED ALARM IS ON. PT TRANSFERRES IN STABLE CONDITION WITH ALL HIS BELONGINGS.
--- NOTE | 2021-04-04 00:46 | NUR ---
PT TRANSFERRED FROM 4 AT 2200. NO PAIN. INCONTINENT. CONFUSED. RESTING COMFORTABLY. FREQUENT OBSERVATION.
[2021-04-04 06:00] LABS: HEMATOCRIT 34.6 % (42.0-52.0); HEMOGLOBIN 11.1 gm/dL (14.0-18.0); MCH 27.4 pg (26.0-34.0); MCV 85.6 fL (80.0-100.0); RBC 4.04 mil/uL (4.50-6.00); RDW 14.9 % (10.5-14.5); WBC 6.9 thou/uL (4.0-11.0)
[2021-04-04 06:12] LABS: CALCIUM 8.6 mg/dL (8.5-10.1); CREATININE 1.2 mg/dL (0.7-1.3); MAGNESIUM 2.1 mg/dL (1.8-2.4); POTASSIUM 4.4 mmol/L (3.5-5.1)
[2021-04-04 07:51] VITALS: BP 143/60
--- NOTE | 2021-04-04 12:03 | NUR ---
Patient is sleeping most of the morning. Gets agitated when woke up. Patient did take medication crushed in applesauce. Very poor appetite. Incontinent of bowel and bladder. Periods of being impulsive. Was able to redirect when patient became restless. Will continue to monitor.
[2021-04-04 15:07] VITALS: BP 124/56
[2021-04-04 19:44] VITALS: BP 123/50
[2021-04-04 20:36] VITALS: BP 123/50
[2021-04-04 21:09] LABS: ABSOLUTE NEUTROPHILS 3.7 thou/uL (1.4-8.2); BASOPHILS 0.6 % (0.0-2.0); EOSINOPHILS 1.2 % (0.0-3.0); HEMATOCRIT 35.8 % (42.0-52.0); HEMOGLOBIN 11.8 gm/dL (14.0-18.0); LYMPHOCYTES 29.1 % (24.0-44.0); MCH 27.7 pg (26.0-34.0); MCHC 32.9 g/dL (28.0-37.0); MCV 84.3 fL (80.0-100.0); MONOCYTES 12.7 % (1.0-8.0); PLATELET COUNT 362 thou/uL (150-400); POLYS 56.4 % (36.0-66.0); RBC 4.25 mil/uL (4.50-6.00); RDW 14.6 % (10.5-14.5); WBC 6.6 thou/uL (4.0-11.0)
--- NOTE | 2021-04-05 04:35 | NUR ---
UPON SHIFT REPORT, PT NOTABLY RESTLESS WITHOUT GOWN, STATING 'IM DYING, HELP ME'. PT EASILY CONSOLED WITH STAFF PRESENCE AND REDIRECTION. UPON SHIFT ASSESSMENT, PT NOTED TO BE INCREASINGLY RESTLESS WITH AGITATION. PT GIVEN PRN PO ZYPREXA Q8HR WITHOUT NOTABLE EFFECT. ONCALL POSSUM TRAPPER NOTIFIED, ADVISED TO [facility], EMAR UPDATED. ONCALL PSYCH PROVIDER NOTIFIED, ADVISED PER FAMILY REQUEST, PT ONLY TO BE GIVEN ZYPREXA FOR BEHAVIORAL MANAGEMENT, RECEIVED ORDERS TO D/C ONETIME IV ATIVAN, AND START PRN IM 2.5MG ZYPREXA Q8HR. PT AOX4, RESPONDING TO ORIENTATION PROMPTS APPROPRIATELY. PT NOTED TO HAVE INTERMITTENT FORGETFULNESS WITH CONFUSION. PT DENIES PAIN, REPORTS SOB WHILE ON ROOM AIR, NOTABLY TACHYPNEIC. INITIALLY REFUSING O2 SUPPLEMENTATION, AFTER PROVIDING EDUCATION, PT AGREEABLE, REPORTING PARTIAL RELIEF SHORTLY AFTER 2L O2 APPLIED VIA NC, REMAINED WITHOUT DESATURATION. PT TOLERATING PO INTAKE OF FLUIDS AND HEART HEALTHY DIET WITHOUT ISSUE. PT WITHOUT NAUSEA OR EMESIS. PT INCONTINENT OF BOWEL AND BLADDER, INTERMITTENTLY USING URINAL. PT RESTING IN BED THROUGHOUT SHIFT, FREQUENT REPOSITIONING ENCOURAGED, PT NOTED TO SHIFT INDEPENDENTLY. +1 PITTING EDEMA NOTED TO BLE. SENSATION INTACT, CAPILLARY REFILL LESS THAN 3SEC, FAINT PERIPHERAL PULSES PALPATED IN ALL EXTREMITIES. PT ENCOURAGED TO NOTIFY STAFF FOR ALL NEEDS, CALL LIGHT WITHIN REACH, BED ALARM ON, BED LOCKED IN LOWEST POSITION, FREQUENT MONITORING WILL CONTINUE.
[2021-04-05 05:29] LABS: HEMATOCRIT 36.9 % (42.0-52.0); HEMOGLOBIN 12.1 gm/dL (14.0-18.0); MCH 28.1 pg (26.0-34.0); MCHC 32.9 g/dL (28.0-37.0); MCV 85.5 fL (80.0-100.0); RBC 4.32 mil/uL (4.50-6.00); RDW 15.2 % (10.5-14.5); WBC 6.9 thou/uL (4.0-11.0)
[2021-04-05 05:46] LABS: CALCIUM 8.9 mg/dL (8.5-10.1); CREATININE 1.1 mg/dL (0.7-1.3); MAGNESIUM 2.3 mg/dL (1.8-2.4); POTASSIUM 3.8 mmol/L (3.5-5.1)
[2021-04-05 06:50] VITALS: BP 138/67
--- NOTE | 2021-04-05 12:22 | NUR ---
ASSESSMENT: CM REVIEWED CHART. PT WAS ADMITTED TO ACUTE CARE FROM [facility] HERE AT [facility] DUE TO CONCERNS FOR SEPSIS. PT IS ON FLUIDS AND IV ANBX. PT WAS ADMITTED TO [facility] DUE TO DEMENTIA WITH BEHAVIORAL DISTURBANCE. CM CONTACTED PATIENTS DAUGHTER/DPOA TIERNEY [phone]. PT WAS LIVING BY HIMSELF IN [facility] UNTIL NOVEMBER WHEN HE DECLINED. PT THEN MOVED TO [facility]. THE FACILITY HAS DECLINED TO TAKE HIM BACK STATING HIS NEEDS ARE MORE THEN WHAT THEY CAN ACCOMIDATE. DAUGHTER REPORTS SHE HAS BEEN WORKING WITH ON SBU FOR ALTERNATE PLACEMENT AND WAS TO HAVE A MEETING TODAY WITH [facility] BUT REPORTS SHE CANCELED IT BECAUSE THEY DO NOT TAKE MEDICAID AND SHE REALIZES PT WILL LIKELY NEED LTC AND EVENTUALLY WILL RUN OUT OF [employer] PAY SO WANTS TO BE SOMEWHERE THAT ACCEPTS MEDICAID SO HE WILL NOT HAVE TO MOVE. CM SENT DAUGHTER LIST OF FACILITIES TO REVIEW TO HER EMAIL [email or web address]. DAUGHTER REPORTS SHE WOULD LIKE TO TOUR FACILITIES TODAY BUT REQUESTED REFERRALS BE SENT TO [facility], [facility], [facility], AND [facility]. CM FAXED REFERRAL AND AWAITING INPUT. TIERNEY STATING SHE AND HE OTHER SISTER PLAN ON TRYING TO TOUR ALL TODAY AND WILL AWAIT INPUT FROM REFERRALS BEING SENT. CM WILL CONTINUE TO FOLLOW.
--- NOTE | 2021-04-05 15:00 | NUR ---
PATIENT A&OX1-2. PERIODS OF CONFUSION AND RESTLESSNESS. MOSTLY CALM DURING THE DAY SHIFT. FAMILY HERE TO VISIT PATIENT. POOR APPETITE. PATIENT DOES LIKE SWEET TREATS AND WILL EAT THOSE ITEMS. IV FLUIDS REMAIN INFUSING. NEW ORDERS GIVEN FOR SLEEP TONIGHT. PATIENT REMAINS INCONTINENT OF BOWEL AND BLADDER. NO COMPLAINTS OF PAIN. WILL CONTINUE TO MONITOR.
--- NOTE | 2021-04-06 03:20 | NUR ---
Pt. was restless at HS and kept rolling back in forth in his bed. Attempted to get out of bed and throwing his legs off the side of the bed. Po zyrexa was given with little relief. Im zyprexa given (see emar) which was help- ful. Pt. non-compiant with letting staff take his vital signs. Iv tubing and O2 tubing kept getting rolled up around the patient. Pt. currently rest- ing quietly in the bed. Incontinent of urine. Bed alarm is on.
[2021-04-06 04:45] VITALS: BP 124/52
[2021-04-06 05:46] LABS: HEMATOCRIT 33.7 % (42.0-52.0); HEMOGLOBIN 11.2 gm/dL (14.0-18.0); MCHC 33.1 g/dL (28.0-37.0); MCV 84.6 fL (80.0-100.0); RBC 3.99 mil/uL (4.50-6.00); RDW 14.6 % (10.5-14.5)
[2021-04-06 05:58] LABS: CALCIUM 8.4 mg/dL (8.5-10.1); CREATININE 1.1 mg/dL (0.7-1.3); POTASSIUM 3.7 mmol/L (3.5-5.1)
[2021-04-06 08:56] VITALS: BP 130/55
[2021-04-06 12:19] LABS: HEMATOCRIT 32.6 % (42.0-52.0); HEMOGLOBIN 10.8 gm/dL (14.0-18.0); MCH 28.2 pg (26.0-34.0); MCHC 33.3 g/dL (28.0-37.0); MCV 84.8 fL (80.0-100.0); RBC 3.85 mil/uL (4.50-6.00); RDW 14.6 % (10.5-14.5); WBC 8.5 thou/uL (4.0-11.0)
--- NOTE | 2021-04-06 14:37 | NUR ---
ON-GOING ASSESSMENT: CM REVIEWED CHART AND SPOKE WITH ATTENDING. CM REVIEWED NURSING NOTES AND PT REQUIRED PRN IM ZYPREXA OVERNIGHT DUE TO RESTLESSNESS. JOSSELYN RECEIVED A CALL FROM [facility] WHO REPORTS THEY REVIEWED REFERRAL BUT ARE UNABLE TO ACCEPT PATIENT HE IS UNVACCINATED AND DO NOT HAVE A LTC ISOLATION ROOM FOR HIM SO HAVE TO DECLINE. JOSSELYN ALSO RECEIVED A VM FROM [facility] STATING THEY DO NOT HAVE ANY LTC AVAILABILTY OPEN. JOSSELYN SPOKE WITH ELISHA AT [facility] AT [place] WHO THOUGHT PATIENT WOULD BE TOO HIGH LEVEL SERVICES FOR AL AND LIKELY NEED LTC. JOSSELYN RECEIVED A CALL FROM PETERSON AT [facility] WHO REPORTS HER ADMINISTRATION IS STILL REVIEWING THEY ARE UNSURE THEY WILL BE ABLE TO TAKE PATIENT SINCE HE IS UNVACCINATED BUT IS WAITING TO HEAR IF HE WERE TO GET VACCINATED UPON DISCHARGE HOW LONG HE WOULD HAVE TO WAIT TO BE ADMITTED. JOSSELYN ALSO SPOKE WITH ANGEL AT [facility] WHO REPORTS SHE WILL DO AN ONSITE EVAL THIS EVENING BUT FEELS PATIENT MAY BE MORE APPROPRIATE FOR LTC. JOSSELYN ATTEMPTED TO CONTACT PTS DAUGHTER TIERNEY TO DISCUSS AND GET MORE OPTIONS BUT UNABLE TO REACH. VM LEFT.
[2021-04-06 18:21] VITALS: BP 120/59
[2021-04-06 19:03] VITALS: BP 122/54
--- NOTE | 2021-04-06 19:49 | NUR ---
RN ASSUMED PT'S CARE AT 0700-1900PM, PT KNOWS HIS NAME, PT CAN FOLLOW SOME COMMANDS, PT IS CONFUSED AT TIME, PT IS CONTINUING IV ABX AND IV FLUID, PT'S VS ARE STABLE, PT NEEDS HELP MEALS AND ADL.
[2021-04-07 02:52] LABS: HEMATOCRIT 29.7 % (42.0-52.0); MCH 28.6 pg (26.0-34.0); MCHC 33.7 g/dL (28.0-37.0); MCV 84.8 fL (80.0-100.0); RBC 3.51 mil/uL (4.50-6.00); RDW 14.7 % (10.5-14.5); WBC 6.1 thou/uL (4.0-11.0)
--- NOTE | 2021-04-07 03:06 | NUR ---
Pt. more alert and oriented, but still has periods of confusion. He has been calm and cooperative with cares. Pt. voiced that he felt nervous and needed something to help him, so he could sleep. Po zyprexa given (see emar) and pt. has rested quietly. Bed alarm is on.
[2021-04-07 03:20] LABS: CALCIUM 7.9 mg/dL (8.5-10.1); MAGNESIUM 1.9 mg/dL (1.8-2.4); POTASSIUM 3.7 mmol/L (3.5-5.1)
[2021-04-07 04:06] VITALS: BP 144/50
--- NOTE | 2021-04-07 08:28 | NUR ---
on-going assessment: cm reached out to patients daughter this am about possible other options to send referrals. REQUESTED REFERRALS BE SENT TO -[facility]: CM SPOKE WITH [facility] AD[facility]IONS WHO REPORTS THEY WILL REVIEW IT BUT SINCE PATIENT IS UNVACCINATED THEY MAY NOT BE ABLE TO ACCEPT HE LIKELY NEEDS THE [facility]LTC UNIT WHICH ALL PTS HAVE TO BE VACCINATED -[facility]: CM LEFT VM WITH MIREYA IN ADMISSIONS AND FAXED REFERRAL. -[facility]: FAXED REFERRAL LEFT VM WITH ADMISSIONS -[facility]: FAXED REFERRAL LEFT VM WITH ADMISSIONS. -[facility]: JOSSELYN FAXED REFERRAL AND SPOKE WITH ADMISSIONS WHO REPORTS THEY CANNOT ACCEPT LTC RESIDENTS AT THIS TIME DUE TO HAVING STAFF POSITIVE FOR COVID.
[2021-04-07 08:29] VITALS: BP 135/57
--- NOTE | 2021-04-07 11:26 | NUR ---
ASSUMED CARE OF PT AT 0700 THIS MORNING. PT HAS BEEN ARGUMENTATIVE AND REFUSING ANY ASST WITH THE OVERNIGHT SHIFT. PT WAS SLEEPING DURING REPORT AND WAITED UNTIL HE WOKE UP FOR ASSESS. PT IS A/O TO SELF AND LOCATION, OTEHERWISE CONFUSED.SKIN INTACT WITH NO TENTING. PT WAS ABLE TO STAND AND USE URINAL THIS MORNING BUT REFUSED TO WORK WITH PHYS DOMY. I TALKED PT IN TRYING THIS AFTERNOON. ASSESSMENTS CHARTED OTHERWISE UNREMARKABLE. IV IN LT FA, SL. PT IS INCOT MOST TIMES. CALL LIGHT AND OTHER NEEDS ARE WITHIN REACH. MEDS AND TX GIVEN NEEDED AND SCHEDULED. WILL CONITNUE MONITORING AND NOTING ANY CHANGES.
--- NOTE | 2021-04-07 16:16 | NUR ---
ON-GOING ASSESSMENT: CM SPOKE WITH PATIENTS DAUGHTER TIERNEY WHO IS AGREEABLE WITH REFERRALS TO ANY UT FACILITIES THAT ARE IN [place], [place], [place], OR [facility]. CM SENT FOLLOWS: ASSISTED LIVING THAT HAS DECLINED -[facility]:NEEDS HIGHER LEVEL OF CARE -[facility]:NEEDS HIGHER LEVEL OF CARE LTC FACILITIES THAT HAVE DECLINED: -[facility]:NO LTC BEDS OPEN -[facility]: NO PRIVATE ROOMS -[facility]: CANNOT ACCEPT DUE TO MEMORY NEEDS -[place] [facility]:NO PRIVATE ROOMS OR GOOD ROOMATE SITUATION -[facility]: CANNOT ACCEPT DUE TO BEING UNVACCINATED -[facility]: CANNOT ACCEPTED DUE TO UNVACCINATED AND NO ISO ROOM -[facility]: NO LTC MEMORY CARE AVAILABILTY -[facility]: [facility] -[facility]-CANNOT ACCEPT DUE TO BEING UNVACCINATED -[facility]: NO LTC MEMORY CARE BED AVAILABILTY -[facility]: NOT ACCEPTING ANY PTS DUE TO STAFF POSITIVE FOR COVID -[facility]: NO LTC/MEMORY SUPPORT BED OPEN -[facility]: NO BEDS PENDING: -[facility]: REFERRAL FAXED AND VM LEFT -[facility]NICA CHAVARRIA: REFERRAL FAXED AND SPOKE WITH KACY IN ADMISSIONS -[facility]: VM LEFT. -[facility] CAL[facility]: VM LEFT -[facility]- LEFT WITH CYR[facility]. PTS DAUGHTER WILL NOT CONSIDER [facility] FACILITIES SHE STATES SHE HAS WORKED IN THEM AND NOT HAPPY WITH THEM.
[2021-04-07 16:23] VITALS: BP 125/55
[2021-04-07 20:22] VITALS: BP 134/56
[2021-04-08 03:53] VITALS: BP 144/66
--- NOTE | 2021-04-08 04:16 | NUR ---
Pt. has been restless and c/o being nervous. He has been tossing and turning in the bed and trying to get up. The bed alarm has sounded frequently. Prn meds given (see emar). Po olanzapine ineffective and im was given which was a little helpful. Continues to be confused at times and having periods of restlessness. Incontinent of urine. Bed alarm is on.
[2021-04-08 09:07] VITALS: BP 138/49
--- NOTE | 2021-04-08 13:53 | NUR ---
ASSUMED CARE OF PT AT 0700 THIS MORNING. NO CHANGES SINCE SHIFT CHANGE LAST NIGHT. ASSESSMENTS CAHRTED AND OTHERWISE UNREMARKABLE. PT MAY BE DISCHARGED THIS AFTERNOON PENDING AUTHORIZATION. CALL LIGHT AND OTHER NEEDS ARE WITHIN REACH. FALL RISK PRECAUTIONS ARE IN PLACE. MEDS AND TX GIVEN NEEDED AND SCHEDULED. MONITOR PT AND WILL NOTE ANY CHANGES.
--- NOTE | 2021-04-08 16:04 | NUR ---
on-going assessment: CM REVIEWED CHART AND SPOKE WITH PATIENTS DAUGHTER TIERNEY TO UPDATE. CM ALSO SENT SOME MORE REFERRALS: -[facility]: CANNOT MEET PTS NEEDS AND DECLINED -[facility]: REFERRAL SEND AND THEY ARE REVIEWING WITH THE ADMINISTRATION -M[facility]NICA CHAVARRIA: DECLINED PATIENT -[facility]: DECLINED PATIENT [facility] FRIAS: REVIEWING BUT GOING THROUGH ADMINISTRATION.
[2021-04-08 20:15] VITALS: BP 125/84
--- NOTE | 2021-04-09 02:58 | NUR ---
PT IS A/O X1 AND IS UP WITH ASSISTANCE. ROOM AIR. VSS AFEBRILE. CONFUSED AND YELLS OUT AT TIMES. FULLY CAPABLE OF MAKING NEEDS KNOWN BUT DOES NOT USE THE CALL LIGHT DESPITE EDUCATION. IS INCONTINENT OF BOWEL AND BLADDER. IV PATENT AND CURRENTLY INFUSING IV FLUIDS. MEDICATIONS GIVEN PER MAR. FALL PRECAUTIONS IN PLACE, CALL LIGHT IS WITHIN REACH. WILL CONTINUE TO MONITOR.
[2021-04-09 04:45] VITALS: BP 131/62
[2021-04-09 07:25] VITALS: BP 129/53
--- NOTE | 2021-04-09 14:24 | NUR ---
PATIENT ALERT AND ORINTED TO SELF, ON ROOM AIR, DENIES ANY PAIN, UP WITH ASSIST WITH WALKER AND GAIT BELT, INCONTINENT OF URINE AND BOWEL, VITAL SIGNS STABLE, AND AFBRIELE. CALL LIGHT WITH IN REACH, BED ALARM ON, WILL CONTINUE TO MONTIOR.
--- NOTE | 2021-04-09 15:28 | NUR ---
on-going assessment: cm reviewed chart and spoke with pts daughter kaela in continued attempts for placement. She is open to any facility on [place] side or even opening up options if needed. -[facility] CHAVARRI[facility]-DECLINED. -[facility]-DECLINED STATING THEY DO NOT FEEL THEY CAN MEET HIS NEEDS DUE TO MEMORY ISSUES. -[facility]-DECLINED DUE TO MEMORY CARE NEEDS -[facility] ZABALA:CM SENT REFERRAL TO [facility] AND SPOKE WITH ESTEPHANIA WHO REPORTS THEY WILL REVIEW. -[facility] HERNÁNDEZ: SPOKE WITH MENA IN ADMISSIONS WHO IS REVIEWING REFERRAL -JOSSELYN SPOKE WITH ROBBI AT [facility] WHO REPORTS THEY RECEIVED THE REFERRAL ON PATIENT AND THEY HAVE 2 RNS SO MAY BE ABLE TO MEET HIS NEEDS AT THEIR AL/MEMORY CARE BUT WOULD HAVE TO DO AN ON-SITE EVAL AND SOONEST WOULD BE MONDAY. CONTACT FOR [facility] IS [phone].
[2021-04-09 19:32] VITALS: BP 132/46
--- NOTE | 2021-04-10 03:14 | NUR ---
PT IS A/O X1 AND IS UP WITH ASSISTANCE. CONFUSED AND IMPULSIVE. YELLS OUT AT TIMES. VSS AFEBRILE. INCONTINENT OF URINE. NO BM THIS SHIFT. MEDS GIVEN PER MAR. PT APPEARS ANXIOUS AND STATES HE JUST FEELS "NERVOUS". PRN ANXIETY MEDICATION GIVEN DIRECTED. FALL PRECAUTIONS IN PLACE, CALL LIGHT IS WITHIN REACH. IV IN PLACE AND IS INFUSING MAINTANCE FLUIDS. IN ROOM NEAR NURSES STATION WITH FREQUENT CHECKS.
[2021-04-10 08:10] VITALS: BP 103/41
[2021-04-10 15:50] VITALS: BP 138/57
[2021-04-10 15:53] VITALS: BP 136/78
--- NOTE | 2021-04-10 16:52 | NUR ---
DAVE ALERT AND ORINTED TO SELF, CONFUSED AND YELLS OUT, ON ROOM AIR, UP WITH ASSIST WITH WALKER AND GAIT BELT, VITAL SIGNS STABLE, AND AFBREILE. CALL LIGHT WITH IN REACH, BED/CHAIR ALARM ON, WILL CONTINUE TO MONITOR.
[2021-04-10 19:00] VITALS: BP 150/53
--- NOTE | 2021-04-11 01:59 | NUR ---
PT ASSESSED AT START OF SHIFT. A&O TO SELF CONFUSED AND YELLS OUT HELP. EVENING MEDS GIVEN WITH SIP OF WATER. PT KIMBERLY IT WELL. IV INTCT AND FLUIDS INFUSING. FALL PREC IN PLACE AND CALLL LIGHT AT REACH WILL CONT TO MONITOR. ROOM IN FORNT TO NURSING STATION. PT INCONTINENT.
[2021-04-11 08:06] VITALS: BP 127/58
[2021-04-11 15:24] VITALS: BP 122/64
[2021-04-11 22:25] VITALS: BP 134/55
--- NOTE | 2021-04-12 01:50 | NUR ---
ASSUMED CARE OF PT @1900 PT IN BED A&X1. EVENING MEDS GIVEN. IV INTACT AND FLUIDS INFUSING. PT INCONTINENT IN BED. PT YELLS OUT HELP AT TIME. RESTLESS AND STATED CAN'T SLEEP MELATONIN AND ZYPREXA GIVEN. PT RESTING THROUGH THE NIGHT. FALL PREC IN PLACE AND CALL LIGHT AT REACH, FREQ ROUNDING DONE WILL CONT TO MONITOR.
[2021-04-12 06:00] VITALS: BP 144/64
[2021-04-12 07:40] VITALS: BP 128/61
--- NOTE | 2021-04-12 09:54 | NUR ---
Assess due to length of stay. Admit with urosepsis, pneumonia. Hx dementia with behaviors, confusion. ST follows for swallow precautions. Pt on mech altered ground diet and also receives Ensure supplements bid. Wt had declined while on SBH but now back up 10 lb to 135 lb. BMI borderline low. Intake variable 5-100%, usually behavioral based. Taking supplement. This am, breakfast tray observed and pt ate 100% of eggs and muffin. Suggest B12 replacement for level 386. Otherwise low nutrition risk. Possible discharge to a LTC facility noted per chart.
--- NOTE | 2021-04-12 12:17 | NUR ---
ASSUMED PT CARE AT 1040 FROM DAY NURSE. PT IS ALERT & ORIENTED TO SELF. PT HAS IV SITE ON CHIOMA. PT IS UP WITH ASSIST X1 WITH GAITBELT AND WALKER. PT IS INCONTINENT. PT IS ON ROOM AIR. PATIENT REFUSED PHYSICAL THERAPY TODAY. NO C/O OF PAIN, NAUSEA AND VOMITING. TOLERATED MEDICATION AND DIET WELL. PT ON THE BED, BED ON THE LOWEST POSITION, SIDE RAILS UP, CALL LIGHT WITHIN REACH. WILL CONTINUE TO MONITOR PT. FOLLOW POC.
--- NOTE | 2021-04-12 14:19 | NUR ---
SW reviewed chart and spoke with attending physician. Pt had episodes of nausea and vomiting earlier today. SW spoke with pt's dtr, Marine, via phone. Lengthy discussion regarding referrals that have been sent to numerous facilities. Pt's dtr updated. SW discussed additional options for consideration. Pt's dtr agreeable with new referrals: [facility]-spoke with Melissa and faxed referral [facility] [place]-spoke with Franny and faxed referral [facility]-spoke with Tita and faxed referral [facility]-left voice message for admissions and faxed referral TANNER followed up on previous referrals: [facility]-left voice message for Selma in admissions [facility]-left voice message for Wilman/Deniz in admissions. Pt's dtr states that she spoke with the admissions dept and they would be doing an onsite evaluation. TANNER left voice message for Annabelle with [facility], regarding onsite evaluation. TANNER is following to assist as needed with discharge planning.
[2021-04-12 16:25] VITALS: BP 126/58
[2021-04-12 19:36] VITALS: BP 128/72
--- NOTE | 2021-04-13 04:02 | NUR ---
PATIENT AOX1 CONFUSED AND FORGETFUL. PATIENT HAD HIGH ANXIETY AND COULD NOT SLEEP. CALLED [employer] OF HALDOL AND TRAZADONE. PATIENT IMPULSIVE THIS SHIFT. FALL PRECAUTION IN PLACE.PATIENT IN BED ASLEEP AT THIS TIME BRETHING REGULAR AND UNLABOURED.
[2021-04-13 07:10] VITALS: BP 139/65
[2021-04-13 10:17] LABS: HEMATOCRIT 30.7 % (42.0-52.0); HEMOGLOBIN 10.3 gm/dL (14.0-18.0); MCH 28.1 pg (26.0-34.0); MCHC 33.6 g/dL (28.0-37.0); MCV 83.8 fL (80.0-100.0); RBC 3.66 mil/uL (4.50-6.00); RDW 14.9 % (10.5-14.5); WBC 4.9 thou/uL (4.0-11.0)
[2021-04-13 10:25] LABS: CALCIUM 8.3 mg/dL (8.5-10.1); CREATININE 1.2 mg/dL (0.7-1.3); MAGNESIUM 2.1 mg/dL (1.8-2.4); POTASSIUM 3.9 mmol/L (3.5-5.1)
--- NOTE | 2021-04-13 15:14 | NUR ---
on-going assessment: CM REVIEWED CHART. CM RECEIVED A VM FROM THE [facility] STATING THEY CANNOT ACCEPT PATIENT. CM ALSO ALSO LEFT VM WITH [facility] TO GET AN UPDATE [facility]. PIPPA HAS DECLINED PATIENT. CM SPOKE WITH ADMISSIONS AT [facility] OR [facility] WHO REPORTS THAT [facility] DID AN ONSITE EVAL YESTERDAY AND REPORT THEY CAN ACCEPT PATIENT PENDING DAUGHTER PROVIDING FINANCES AND THEM TRYING TO SCHEDULE A TOUR AT THEIR COMMYNITY WITH HER. CM ATTEMPTED TO REACH OUT TO PATIENTS DAUGHTER TIERNEY AND LEFT A VM. CM ALSO FAXED UPDATED CLINICAL TO [facility] AT [facility]. CM UPDATED ATTENDING. CM WILL CONTINUE TO FOLLOW TO ASSIST NEEDED.
--- NOTE | 2021-04-13 16:14 | NUR ---
ASSUMED PT CARE THIS AM. PT IS ALERT TO SELF ONLY. PT HAS IV SITE ON R UA RUNNING NS @100ML. PT IS NO CODE. GIVEN VALERIE CRACKERS PER PT REQUEST. PT TOLERATED MEDICATION AND DIET WELL. PT IS ON ROOM AIR. NO C/O OF PAIN, NAUSEA AND VOMITING DURING THE SHIFT. PT HAS BEEN SLEEPING TODAY. PT ON THE BED, BED ON THE LOWEST POSITION, SIDE RAILS UP, CALL LIGHT WITHIN REACH. WILL CONTINUE TO MONITOR PT. FOLLOW POC.
[2021-04-13 16:45] VITALS: BP 123/58
[2021-04-13 19:10] VITALS: BP 149/70
--- NOTE | 2021-04-13 23:25 | NUR ---
PATIENT ALERT X 1-2. PERIODS OF CONFUSION AND AGITATION. PATIENT REPEATS PHRASES OVER AND OVER. REQUESTING SNACKS SEVERAL TIMES THROUGH THE NIGHT. SNACKS PROVIDED. PATIENT COMPLAINED OF UPSET STOMACH. MEDICATION GIVEN. PATIENT CURRENTLY RESTING. WILL CONTINUE TO MONITOR.
[2021-04-14 05:35] VITALS: BP 150/56
[2021-04-14 09:09] VITALS: BP 168/67
--- NOTE | 2021-04-14 11:06 | NUR ---
ASSUMED PT CARE THIS AM. PT A&OX3, MAKES NEEDS KNOWN. IV PATENT, MEDICATION INFUSING WITHOUT ISSUE. PATIENT FORGETFL AT TIMES. PO MEDICATION TAKEN WITHOUT ISSUE. PATIENT IS ON ROOM AIR. PATIENT HAS NO COMPLAINTS OFPAIN, NUMBNESS, OR TINGLING. FALL PRECAUTIONS ARE IN PLACE, CALL LIGHT WITHIN REACH.
--- NOTE | 2021-04-14 11:38 | NUR ---
ON-GOING ASSESSMENT: CM REVIEWED CHART AND SPOKE WITH PTS DAUGHTER TIERNEY. TIERNEY STATING SHE IS UNABLE TO GET AWAY FROM WORK TODAY BUT HAS PLANNED TO GO TOMORROW WITH HER SISTER TO [facility] TO SIGN PAPERWORK AND OFFICIALLY TOUR. CM SPOKE WITH [facility] LIASON EDWARDO LY AND SHE VERIFIED THAT SHE WILL REACH OUT TO PTS DAUGHTER TIERNEY TODAY WELL. CM NOTIFIED HER THAT PATIENT IS READY FOR DISCHARGE ONCE PAPERWORK CAN BE COMPLETED. EDWARDO STATING THAT DISCHARGES BEFORE WEEKENDS ARE DIFFICULT AND THEY WOULD NEED TO GET PATIENTS FURNITURE AND THINGS SITUATED BUT SHE WILL CHECK WITH HER BOSS AND CALL CM BACK. CM ALSO FAXED UPDATED CLINICAL TO [facility] TO UPDATE THEM AND CONFIRMED THEY RECEIVED IT. CM WILL CONTINUE TO FOLLOW.
[2021-04-14 17:23] VITALS: BP 127/54
[2021-04-14 19:57] VITALS: BP 120/39
--- NOTE | 2021-04-14 22:29 | NUR ---
PATIENT IS ALERT TO SELF, PLACE, AND SITUATION. ANSWERS QUESTIONS APPROPRIATELY. CONTINUES TO REPEAT PHRASES OVER AND OVER. REQUESTING SEVERAL SNACKS. SNACKS GIVEN. MEDS CRUSHED IN APPLESAUCE. PERIODS OF AGITATION. PRN MEDICATION GIVEN. PATIENT REMAINS CLOSE TO NURSE STATION. INCONTINENT OF BOWEL AND BLADDER. INCONTINENCE EPISODES OF URINE THIS SHIFT. FALL PRECAUTIONS IN PLACE. IV INFILTRATED. REMOVED AND GAUZE APPLIED. PATIENT WAS ANXIOUS. WILL TRY ONCE PATIENT IS CALM. WILL CONTINUE TO MONITOR.
[2021-04-15 02:51] VITALS: BP 156/62
[2021-04-15 07:35] VITALS: BP 488/62
--- NOTE | 2021-04-15 10:20 | NUR ---
ASSUMED PT CARE THIS AM. PT A&OX2, ABLE TO MAKE NEEDS KNOWN. PATIENT COOPERATIVE WITH STAFF THIS AM. IV FLUIDS WERE DISCONTINUED BY PHYSICIAN THIS MORNING, WILL BE SALINE LOCKED. MEDICATIONS TAKEN WITHOUT ISSUE. PATIENT REPORTING NO PAIN, NUMBNESS, OR TINGLING. FALL PRECAUTIONS ARE IN PLACE, CALL LIGHT WITHIN REACH.
[2021-04-15 10:36] VITALS: BP 148/62
[2021-04-15 15:46] VITALS: BP 113/43
--- NOTE | 2021-04-15 16:05 | NUR ---
ON-GOING ASSESSMENT: CM REACHED OUT AGAIN TO [facility] BACK IF THEY REVIEWED REFERRAL AND HAVE NOT HEARD BACK. CM HAD VM FROM PATIENTS DAUGHTER TIERNEY STATING SHE AND HER SISTER AURA [phone] WERE GOING TO [facility] TODAY TO TOUR AND SIGN PAPERWORK IF THEY LIKED THE FACILITY. CM ATTEMPTED TO CONTACT TIERNEY X2 WELL SISTER AURA X2 AND UNABLE TO REACH. CM ALSO LEFT A VM FOR EDWARDO THE MAGNETIC RESONANCE TECHNOLOGIST AT [facility] TO GET AN UPDATE BUT VM WAS LEFT AND NO RETURN CALL AT THIS TIME. CM FAXED UPDATED CLINICAL TO [facility]. CM AWAITING FURTHER INPUT AT THIS TIME.
[2021-04-15 20:40] VITALS: BP 147/75
--- NOTE | 2021-04-16 01:44 | NUR ---
PT IS A/O X2 AND IS UP WITH ASSISTANCE. ROOM AIR. VSS. AFEBRILE. MEDICATIONS GIVEN IN YOGART. PT C/O FEELING "NERVOUS". PRN ANXIETY MEDICATION GIVEN DIRECTED. PT IS PLEASANT AND COOPERATIVE. INCONTINENT OF URINE. NO BM THIS SHIFT. YELLS OUT ON OCCASION HELP AND IT IS USUALLY FOLLOWED WITH GET ME SOMETHING TO EAT. SNACKS PROVIDED REQUESTED. FALL PRECAUTIONS IN PLACE, CALL LIGHT IS WITHIN REACH. PT IS PROGRESSING TOWARDS PLAN OF CARE DC GOALS.
[2021-04-16 07:36] VITALS: BP 136/62
--- NOTE | 2021-04-16 13:33 | NUR ---
Spoke with Annabelle at [facility] who confirms plan for patient to move to [facility] on Monday. Left message for dtr Marine. Spoke with erin Covington who confirms plan. Updated [facility] with faxed clinical. Dtr Adria reports she was told [facility] would provide transport.
--- NOTE | 2021-04-16 14:11 | NUR ---
ASSUMED CARE OF PT AT 0700 THIS MORNING. PT IS A/OX1 AND CONFUSED. PT CAN BE AGGRESSIVE AND COMBATIVE AT TIMES. PT WAS APPROPRIATE THROUGHOUT THE SHIFT FOR ME. SKIN INTACT WITH NO TENTING. LUNGS ARE CLEAR IN UPPER AND DIMINISHED IN LOWER ONEIL. ASSESSMENTS NOTED IN CHART AND OTHERWISE UNREMARKABLE. CALL LIGHT AND OTHER NEEDS ARE IN REACH, IV IN LT FA, SL. FALL PRECAUTIONS ARE IN PLACE. MEDS AND TX GIVEN NEEDED AND SCHEDULED. WILL CONTINUE TO MONITOR AND NOTE ANY CHANGES.
[2021-04-16 16:05] VITALS: BP 116/52
[2021-04-16 19:40] VITALS: BP 126/52
--- NOTE | 2021-04-17 02:47 | NUR ---
PT IS A/O TO PERSON AND PLACE. ROOM AIR. VSS AFEBRILE. MEDICATIONS GIVEN PER MAR. ANXIETY MEDICATION GIVEN DIRECTED. FALL PRECAUTIONS IN PLACE, CALL LIGHT IS WITHIN REACH. PT IS INCONTINENT OF BOWEL AND BLADDER. NO BM THIS SHIFT. WILL CONTINUE TO MONITOR.
[2021-04-17 06:24] VITALS: BP 116/46
--- NOTE | 2021-04-17 09:33 | NUR ---
Assumed care of pt at 0700. Pt anxious and yells out for help. Incontinent. RA. Looking for placement. Fall precautions in place. Will continue to monitor.
[2021-04-17 16:50] VITALS: BP 113/52
[2021-04-17 19:55] VITALS: BP 120/52
--- NOTE | 2021-04-18 00:57 | NUR ---
PT WAS OBSERVED LYING IN BED WHILE YELLING FOR HELP AT SHIFT CHANGE.PT ALERT TO SELF. PT INCONTINENET,CARLOS CARE DONE WITH EACH INCONTINENCE.MEDS CRUSHED IN PUDDING.PT A LITTLE AGITATED THE SHIFT PROGRESSED,FELT BETTER AFTER HE ATE SOME FOOD AND GOT HIS HS MEDS.PT SLEEPING ON HIS BED AT THIS TIME.FALL PRECAUTIONS IN PLACE,CALL LIGHT WITHIN REACH.
--- NOTE | 2021-04-18 11:54 | NUR ---
ASSUMED PT CARE THIS AM. PT ALERT & ORIENTED X1. PT IS INCONTINENT BOWEL AND BLADDER AND HAS BRIEF ON. PT HAS IV SITE ON LFA SALINE LOCKED. PT IS ON ROOM AIR. PT TOLERATED DIET AND MEDICATION WELL. NO C/O OF NAUSEA AND VOMITING. PT LAST BM WAS YESTERDAY. GIVEN PAIN AND ANXIETY MEDICATION TODAY. PT ON THE BED, BED ON THE LOWEST POSITION, SIDE RAILS UP, CALL LIGHT WITHIN REACH. WILL CONTINUE TO MONITOR PT. FOLLOW POC.
[2021-04-18 15:50] VITALS: BP 122/57
[2021-04-18 20:08] VITALS: BP 115/56
--- NOTE | 2021-04-19 02:53 | NUR ---
PT IS A/O X2 AND IS UP WITH ASSISTANCE. VSS AFEBRILE. ROOM AIR. IRRITABLE AND DEMANDING THIS NOC ABOUT HAVING MORE FOOD. SNACKS PROVIDED AT TIME OF DEMANDS. INCONTINENT OF BLADDER. NO BM THIS SHIFT. MEDICATION GIVEN PER MAR. FALL PRECAUTIONS IN PLACE, CALL LIGHT IS WITHIN REACH. WILL CONTINUE TO MONITOR. PT IS IN ROOM NEAR NURSES STATION WITH FREQUENT CHECKS.
[2021-04-19 07:44] VITALS: BP 133/76
[2021-04-19 08:10] VITALS: BP 133/76
[2021-04-19] MEDS ORDERED: PROAIR HFA8.5 GM INH (08:54)
[2021-04-19] MEDS ORDERED: TRAZODONE HCL50 MG PO (08:54)
--- NOTE | 2021-04-19 12:09 | NUR ---
on-going assessment: CM REVIEWED CHART AND SPOKE WITH ATTENDING. PT IS STABLE TO DISCHARGE THIS DATE. CM SPOKE WITH EDWARDO STITCH RUBBER AT [facility] WHO REPORTS THEY CAN ACCEPT PATIENT TODAY AND FAMILY MOVED IN ITEMS FOR THE PATIENT THIS WEEKEND. CM FAXED DISCHARGE PAPERWORK TO [facility] AND CM SPOKE WITH EDWARDO TO CONFIRM THEY RECEIVED IT. CM ALSO SPOKE WITH PATIENTS DAUGHTER TIERNEY WHO CONFIRMS FAMILY IS IN AGREEANCE OF PATIENT GOING TO [facility] AND THEY MOVED IN BELONGINGS OVER THE WEEKEND. [facility] CAN ARRANGE TRANSPORATATION FOR PATIENT AND WILL BE ARRIVING AROUND 1300. CM NOTIFIED PTS DAUGHTER TIERNEY WELL BEDSIDE RN. TIERNEY STATING SHE WILL NOTIFY HER BROTHER JANET WELL. CHART COPY WAS ORDERED AND CM PROVIDED BEDSIDE RN WITH THE NUMBER FOR REPORT. PTS DAUGHTER AND PT DENY ANY FURTHER NEEDS FROM CM. CM INSTRUCTED BEDSIDE RN TO GIVE REPORT TO [facility] AT THE FACILITY SHE IS THE RN THAT WILL BE TALKING CARE OF HIM. CASE CLOSED.
== END 2021-04-19 13:41 | DRG 177 ==
LOC: 4N 18:50 → 4S 20:41 → 4W 20:41 → 4S 04-03 21:31
PROVIDERS: Nurse Practitioner Family; ADMIT Internal Medicine; ATTEND Internal Medicine
DX: J69.0 Pneumonitis due to inhalation of food and vomit (principal); N17.0 Acute kidney failure with tubular necrosis; N39.0 Urinary tract infection, site not specified; F03.91 Unspecified dementia, unspecified severity, with behavioral disturbance; I82.611 Acute embolism and thrombosis of superficial veins of right upper extremity; F32.9 Major depressive disorder, single episode, unspecified; F41.9 Anxiety disorder, unspecified; J44.9 Chronic obstructive pulmonary disease, unspecified; K21.9 Gastro-esophageal reflux disease without esophagitis; I12.9 Hypertensive chronic kidney disease with stage 1 through stage 4 chronic kidney disease, or unspecified chronic kidney disease; I80.9 Phlebitis and thrombophlebitis of unspecified site; N18.9 Chronic kidney disease, unspecified; Z66 Do not resuscitate; J84.89 Other specified interstitial pulmonary diseases; E86.0 Dehydration; B96.89 Other specified bacterial agents as the cause of diseases classified elsewhere; Z20.822 Contact with and (suspected) exposure to COVID-19; Z91.013 Allergy to seafood; Z79.899 Other long term (current) drug therapy; Z90.49 Acquired absence of other specified parts of digestive tract; Z87.891 Personal history of nicotine dependence; Z88.0 Allergy status to penicillin; Z86.73 Personal history of transient ischemic attack (TIA), and cerebral infarction without residual deficits
CPT/HCPCS: 10047; 10102